=== PATIENT | female | born 1980 | race Caucasian/White ===

== ENCOUNTER → 2021-06-17 09:41 | Outpatient (CLI) | payer OTHER, SELFPAY ==
--- NOTE | 2021-06-17 09:44 | DI.RAD.S_ITS ---
PROCEDURE: XR LUMBAR SPINE 2-3V INDICATIONS: chronic back and bilateral hip pain TECHNIQUE: 2 views of the lumbar spine were acquired. COMPARISON: None. FINDINGS: Bones: 5 [id number] vertebrae are present. There is normal bony alignment. No vertebral body compression fractures. No suspicious bony lesions. Facet arthrosis, most prominent at L5-S1. Soft tissues: Overlying bowel gas pattern is normal. No suspicious soft tissue calcifications. IMPRESSION: Lumbar spine degeneration as detailed above. Dictated by: Trevor Bahena M.D. on 06/17/2021 at 10:45 Approved by: Trevor Bahena M.D. on 06/17/2021 at 10:45
--- NOTE | 2021-06-17 09:44 | DI.RAD.S_ITS ---
PROCEDURE: XR HIP W PEL IF DONE MARCELLA MIN 4V INDICATIONS: chronic back and bilateral hip pain TECHNIQUE: AP pelvis with lateral view(s) of the bilateral hip(s). COMPARISON: None. FINDINGS: Bones: No fractures or dislocations. Pelvic ring appears intact. No suspicious bony lesions. Soft tissues: The visualized bowel gas pattern is normal. No suspicious soft tissue calcifications. IMPRESSION: No acute osseous abnormality. Dictated by: Trevor Bahena M.D. on 06/17/2021 at 10:43 Approved by: Trevor Bahena M.D. on 06/17/2021 at 10:44
[2021-06-17 10:53] LABS: Add Manual Diff / Slide Review NO; Basophils Absolute Auto 0 /uL (0-100); Basophils Percent Auto 0.5 % (0-2); Eosinophils Absolute Auto 200 /uL (0-450); Eosinophils Percent Auto 3.7 % (2-4); Hematocrit 41.4 % (36-46); Hemoglobin 13.8 g/dL (12.0-16.0); Lymphocytes Absolute Auto 1800 /uL (1100-4500); Lymphocytes Percent Auto 29.6 % (25-40); Mean Corpuscular HGB Conc 33.3 % (30-36); Mean Corpuscular Volume 87.1 fL (80-100); Monocytes Absolute Auto 600 /uL (0-900); Monocytes Percent Auto 10.6 % (3-14); Neutrophils Absolute Auto 3300 /uL (1500-7000); Neutrophils Percent Auto 55.6 % (50-75); Platelet Count 245 X10^3/uL (150-400); Red Blood Cell Count 4.75 X10^6/uL (4.0-5.2); Red Cell Distribution Width 13.8 % (11.6-14.8); White Blood Cell Count 5.9 X10^3/uL (4.5-11.0)
[2021-06-17 11:29] LABS: Alanine Aminotransferase 13 IU/L (<35); Albumin 4.4 g/dL (3.5-5.0); Albumin Globulin Ratio 1.4 (1.0-2.8); Alkaline Phosphatase 49 U/L (38-126); Aspartate Aminotransferase 21 IU/L (14-36); BUN Creatinine Ratio 18.4 (6-22); Bilirubin Total 0.5 mg/dL (0.2-1.3); Blood Urea Nitrogen 14 mg/dL (7-17); Calcium 9.4 mg/dL (8.4-10.2); Carbon Dioxide 27 mmol/L (22-32); Chloride 103 mmol/L (98-107); Cholesterol 215 mg/dL (140-199); Estimated Glomerular Filt Rate > 60.0 mL/min (>60); Globulin 3.2 g/dL (1.7-4.1); Glucose 85 mg/dL (70-100); HDL Cholesterol 66 mg/dL (40-60); HEMOLYSIS < 15 (0-50); LDL Cholesterol Calculated 136 mg/dL (<100); Potassium 4.3 mmol/L (3.4-5.1); Sodium 139 mmol/L (137-145); Total Protein 7.6 g/dL (6.3-8.2); Triglycerides 67 mg/dL (35-150)
[2021-06-17 11:37] LABS: Vitamin D 25 Hydroxy (D3) 39.7 ng/mL (30.0-100.0)
[2021-06-17 11:54] LABS: TSH w/ Reflex to FT4 3.39 uIU/mL (0.47-4.68)
[2021-06-17 12:12] LABS: Vitamin B12 Reflex MMA if <400 453 pg/mL (239-931)
== END ==
PROVIDERS: Family Provider Family Medicine; PCP Family Medicine; Referring Provider Family Medicine; Visit Provider Family Medicine
DX: M47.817 Spondylosis without myelopathy or radiculopathy, lumbosacral region (principal); M25.552 Pain in left hip; M25.551 Pain in right hip; M54.50 Low back pain, unspecified; L30.9 Dermatitis, unspecified; L65.9 Nonscarring hair loss, unspecified; R53.83 Other fatigue; G89.29 Other chronic pain
CPT/HCPCS: 36415; 72100; 73522; 80053; 80061; 82306; 82607; 84443; 85025

== ENCOUNTER 2021-08-15 09:00 | Outpatient (RCR) | payer OTHER, SELFPAY ==
--- NOTE | 2021-05-09 12:44 | PT.OIE ---
Current Diagnoses Other chronic pain (05/09/21) Pain in right hip (05/09/21) Pain in left hip (05/09/21) Low back pain, unspecified (05/09/21) Past Medical History (Last Updated 01/03/21 @ 11:20 by Celso Norton MD) Bilateral hip pain Chronic low back pain Dermatitis Fatigue IBS (irritable bowel syndrome) Past Surgical History History of breast augmentation Visit Care Team Role Provider Type Celso Norton MD Attending Provider Physician Family Provider Primary Care Provider Referring Provider Specialty: [facility] Practice Address: [address] [place] [address] Email: [email or web address] Physical Therapy Initial Evaluation PT-OP-A Visit Information Start: 05/01/21 07:52 Freq: Status: Active Protocol: Document 05/09/21 09:45 AMB (Rec: 05/09/21 09:58 AMB [id number]) Out-Patient Physical Therapy Visit Information Visit Information Visit Type Initial Evaluation Visit Start Time 09:45 Visit Stop Time 10:30 Total Visit Minutes 45 Visit Number 1 PT-OP-B Current Condition Start: 05/01/21 07:52 Freq: Status: Active Protocol: Document 05/09/21 09:45 AMB (Rec: 05/09/21 09:58 AMB [id number]) Current Condition History of Current Condition Onset Date 2 years ago Current Complaints L low back pain and bilateral hip pain History of Current Condition Back can get locked up, both hips get sore a lot. Doesn't feel like there's a pattern. Denies stiffness. Cracking her back helps- does that probably every other day. Denies radiation down the leg. Does report diastasis recti and pelvic floor weakness after 3 kids. Youngest kid is 6. Current Functional Impairments (Reported) Functional Limitations- ADL's Getting in and out of the car, rolling over in bed are painful, extended sitting to drive is painful Personal Factors Other Personal Factors That May Effect Reports stress incontinence, Therapy/Recovery PT-OP-C Subjective Start: 05/01/21 07:52 Freq: Status: Active Protocol: Document 05/09/21 09:45 AMB (Rec: 05/09/21 11:04 AMB [id number]) Patient Questionnaires Lower Extremity Functional Scale LEFS Score 65 LEFS Impairment 1 to 19% Impaired (Score 63-79 ) OP-PT Pain Assessment Comments Pain Comments 6/10 low back (L), 4/10 bilateral hips PT-OP-F Manual Assessment Start: 05/01/21 07:52 Freq: Status: Active Protocol: Document 05/09/21 09:45 AMB (Rec: 05/09/21 11:04 AMB [id number]) Manual Assessments Soft Tissue Assessment Soft Tissue Mobility Assessment No pain reproduced with palpation through hip flexor and gluteals, some tightness in gluteals Joint Mobility Assessment Joint Mobility Assessment No pain with unilateral or central PAs throughout lumbar spine, pain with hip IR with OP on the left and with lumbar sidebeninding to the L PT-OP-J Posture/Palpation/Skin Start: 05/01/21 07:52 Freq: Status: Active Protocol: Document 05/09/21 09:45 AMB (Rec: 05/09/21 11:04 AMB [id number]) Posture Evaluation Comments Posture Comments significant increased lumbar lordosis. In supine medial malleolus appeared inferior on the left and ASIS superior on the left Palpation Assessment Location Two Palpation Location SI joint Palpation Details apparent lipoma on L SI joint One Palpation Location abdomen Palpation Details diastasis recti - bulging out with lifting head up PT-OP-K Range of Motion Start: 05/01/21 07:52 Freq: Status: Active Protocol: Document 05/09/21 09:45 AMB (Rec: 05/09/21 11:04 AMB [id number]) Lumbar Spine Range of Motion Lumbar Spine Active Degrees Testing Position Standing Flexion 45 Extension 10 Lateral Flexion Left 10 Lateral Flexion Right 20 Comments Pain with L sidebending Hip Goniometric Range of Motion Hip Left Passive Testing Position Supine Internal Rotation 25 Comments 37 degrees without pain on the right, painful on the left- reproduced back pain PT-OP-L Special Tests Start: 05/01/21 07:52 Freq: Status: Active Protocol: Document 05/09/21 09:45 AMB (Rec: 05/09/21 11:04 AMB [id number]) Special Tests Hip Special Tests HIEU Test Results - PT-OP-M Strength Start: 05/01/21 07:52 Freq: Status: Active Protocol: Document 05/09/21 09:45 AMB (Rec: 05/09/21 11:04 AMB [id number]) Hip Strength Hip Manual Muscle Testing Left Flexion (L2) 5 Normal Extension (S1) 5 Normal Abduction 5 Normal Adduction 5 Normal External Rotation 5 Normal Internal Rotation 5 Normal PT-OP-Q Treatments Start: 05/01/21 07:52 Freq: Status: Active Protocol: Document 05/09/21 09:45 AMB (Rec: 05/09/21 11:16 AMB [id number]) Manual Therapy Treatment Taping 1 Body Location SI joints Type of Tape Kinesio Tape Comments I strip at lumbosacral joint and over lipoma PT-OP-T Assessment and Plan Start: 05/01/21 07:52 Freq: Status: Active Protocol: Document 05/09/21 09:45 AMB (Rec: 05/09/21 11:16 AMB [id number]) Physical Therapy Assessment Rehab Potential Rehabilitation Potential Good Evaluation Complexity Number of Personal Factors/Comorbidities 1-2 Number of Body Systems Impaired 4 or More Clinical Presentation at Evaluation Stable Impairments Impairments Functional Activities, Functional Mobility,ROM,Soft Tissue Mobility Goals Two Impairment HEP Short Term Goal (STG) Suzy will be independent with a HEP for core stability. STG Duration 4 weeks One Impairment Transfers Short Term Goal (STG) Suzy will roll over in bed without back/hip pain. STG Duration 4 weeks Snf Goal (LTG) Suzy will move in and out of her car without hip/back pain. LTG Duration 8 weeks Assessment Summary Assessment Suzy attends PT with worsening L sided low back pain that radiates into her bilateral hips. She notes pain over a lump which appeared to this therapist to be a lipoma over her SI joint. She did notice pain relief with posterior pelvic tilt and TA contraction. Poor TA and PF strength per her report. She did also have back pain with hip internal rotation which could be a further sign of sacrioiliac joint dysfunction. 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 Physical Therapy Plan Frequency and Duration Frequency of Treatment 2x/Week Duration of Treatment 8 weeks Plan of Care Start Date 05/09/21 Plan of Care End Date 07/04/21 Therapeutic Interventions Therapeutic Interventions Home Exercise Program,Manual Therapy,Neuromuscular Re- education,Self-Care/Home Management,Therapeutic Activities,Therapeutic Exercises Modalities Cold Pack/Ice Massage,Electric Stimulation,Hot Packs Next Visit Focus/Plan Next Note Type Treatment Note Next Visit Plan follow up on taping and working on TA engagement, posterior pelvic tilt
--- NOTE | 2021-05-09 12:44 | PT.OPPOC ---
Physical, Occupational & Speech Therapy At [facility] Current Diagnoses Other chronic pain (05/09/21) Pain in right hip (05/09/21) Pain in left hip (05/09/21) Low back pain, unspecified (05/09/21) Visit Care Team Role Provider Type Celso Norton MD Attending Provider Physician Family Provider Primary Care Provider Referring Provider Specialty: Family Practice Address: [address] [place] [address], [facility] Email: [email or web address] Plan Of Care PT-OP-T Assessment and Plan Start: 05/01/21 07:52 Freq: Status: Active Protocol: Document 05/09/21 09:45 AMB (Rec: 05/09/21 11:16 AMB [id number]) Physical Therapy Assessment Rehab Potential Rehabilitation Potential Good Evaluation Complexity Number of Personal Factors/Comorbidities 1-2 Number of Body Systems Impaired 4 or More Clinical Presentation at Evaluation Stable Impairments Impairments Functional Activities, Functional Mobility,ROM,Soft Tissue Mobility Goals Two Impairment HEP Short Term Goal (STG) Suzy will be independent with a HEP for core stability. STG Duration 4 weeks One Impairment Transfers Short Term Goal (STG) Suzy will roll over in bed without back/hip pain. STG Duration 4 weeks Insurance Verification Clerk Goal (LTG) Suzy will move in and out of her car without hip/back pain. LTG Duration 8 weeks Assessment Summary Assessment Suzy attends PT with worsening L sided low back pain that radiates into her bilateral hips. She notes pain over a lump which appeared to this therapist to be a lipoma over her SI joint. She did notice pain relief with posterior pelvic tilt and TA contraction. Poor TA and PF strength per her report. She did also have back pain with hip internal rotation which could be a further sign of sacrioiliac joint dysfunction. 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 Physical Therapy Plan Frequency and Duration Frequency of Treatment 2x/Week Duration of Treatment 8 weeks Plan of Care Start Date 05/09/21 Plan of Care End Date 07/04/21 Therapeutic Interventions Therapeutic Interventions Home Exercise Program,Manual Therapy,Neuromuscular Re- education,Self-Care/Home Management,Therapeutic Activities,Therapeutic Exercises Modalities Cold Pack/Ice Massage,Electric Stimulation,Hot Packs Next Visit Focus/Plan Next Note Type Treatment Note Next Visit Plan follow up on taping and working on TA engagement, posterior pelvic tilt Plan of Care Dates Plan of Care Start Date 05/09/21 Plan of Care End Date 07/04/21 Electronically Signed by: Ketty Ospina, PT 05/09/21 [id number] Please Sign and Return: I have reviewed this Plan of Care and certify that the skilled therapy services above are required to meet the patient?s needs. Physician Signature Date Printed Name and Credentials Clinical Instructor Signature Printed Name and Credentials
--- NOTE | 2021-05-14 16:00 | PT.OTN ---
Current Diagnoses Other chronic pain (05/14/21) Pain in right hip (05/14/21) Pain in left hip (05/14/21) Low back pain, unspecified (05/14/21) Physical Therapy Treatment Note PT-OP-A Visit Information Start: 05/01/21 07:52 Freq: Status: Active Protocol: Document 05/14/21 09:30 AMB (Rec: 05/14/21 16:00 AMB [id number]) Out-Patient Physical Therapy Visit Information Visit Information Visit Type Treatment Note Visit Start Time 09:30 Visit Stop Time 10:15 Total Visit Minutes 45 Visit Number 2 PT-OP-B Current Condition Start: 05/01/21 07:52 Freq: Status: Active Protocol: Document 05/09/21 09:45 AMB (Rec: 05/09/21 09:58 AMB [id number]) Current Condition History of Current Condition Onset Date 2 years ago Current Complaints L low back pain and bilateral hip pain History of Current Condition Back can get locked up, both hips get sore a lot. Doesn't feel like there's a pattern. Denies stiffness. Cracking her back helps- does that probably every other day. Denies radiation down the leg. Does report diastasis recti and pelvic floor weakness after 3 kids. Youngest kid is 6. Current Functional Impairments (Reported) Functional Limitations- ADL's Getting in and out of the car, rolling over in bed are painful, extended sitting to drive is painful Personal Factors Other Personal Factors That May Effect Reports stress incontinence, Therapy/Recovery PT-OP-C Subjective Start: 05/01/21 07:52 Freq: Status: Active Protocol: Document 05/14/21 09:30 AMB (Rec: 05/14/21 16:00 AMB [id number]) OP-PT Subjective Patient Comments Patient Comments Suzy has returned to her workouts, generally feels better with movement, when driving or getting up in the morning feels really stiff. PT-OP-F Manual Assessment Start: 05/01/21 07:52 Freq: Status: Active Protocol: Document 05/09/21 09:45 AMB (Rec: 05/09/21 11:04 AMB [id number]) Manual Assessments Soft Tissue Assessment Soft Tissue Mobility Assessment No pain reproduced with palpation through hip flexor and gluteals, some tightness in gluteals Joint Mobility Assessment Joint Mobility Assessment No pain with unilateral or central PAs throughout lumbar spine, pain with hip IR with OP on the left and with lumbar sidebeninding to the L PT-OP-J Posture/Palpation/Skin Start: 05/01/21 07:52 Freq: Status: Active Protocol: Document 05/09/21 09:45 AMB (Rec: 05/09/21 11:04 AMB [id number]) Posture Evaluation Comments Posture Comments significant increased lumbar lordosis. In supine medial malleolus appeared inferior on the left and ASIS superior on the left Palpation Assessment Location Two Palpation Location SI joint Palpation Details apparent lipoma on L SI joint One Palpation Location abdomen Palpation Details diastasis recti - bulging out with lifting head up PT-OP-K Range of Motion Start: 05/01/21 07:52 Freq: Status: Active Protocol: Document 05/09/21 09:45 AMB (Rec: 05/09/21 11:04 AMB [id number]) Lumbar Spine Range of Motion Lumbar Spine Active Degrees Testing Position Standing Flexion 45 Extension 10 Lateral Flexion Left 10 Lateral Flexion Right 20 Comments Pain with L sidebending Hip Goniometric Range of Motion Hip Left Passive Testing Position Supine Internal Rotation 25 Comments 37 degrees without pain on the right, painful on the left- reproduced back pain PT-OP-L Special Tests Start: 05/01/21 07:52 Freq: Status: Active Protocol: Document 05/09/21 09:45 AMB (Rec: 05/09/21 11:04 AMB [id number]) Special Tests Hip Special Tests HIEU Test Results - PT-OP-M Strength Start: 05/01/21 07:52 Freq: Status: Active Protocol: Document 05/09/21 09:45 AMB (Rec: 05/09/21 11:04 AMB [id number]) Hip Strength Hip Manual Muscle Testing Left Flexion (L2) 5 Normal Extension (S1) 5 Normal Abduction 5 Normal Adduction 5 Normal External Rotation 5 Normal Internal Rotation 5 Normal PT-OP-Q Treatments Start: 05/01/21 07:52 Freq: Status: Active Protocol: Document 05/14/21 09:30 AMB (Rec: 05/14/21 16:00 AMB [id number]) Therapeutic Exercises Supine Exercises DKTC Reps/Minutes 30x2 LTR Reps/Minutes 10 table top Reps/Minutes 10 Comments cues for TA PPT Reps/Minutes 10 Sitting Exercises therapy ball Sitting Exercise Name pelvic tilt- difficult in seated Other Exercises cameron pose Reps/Minutes 10 cat cow Reps/Minutes 10 PT-OP-T Assessment and Plan Start: 05/01/21 07:52 Freq: Status: Active Protocol: Document 05/14/21 09:30 AMB (Rec: 05/14/21 16:00 AMB [id number]) Physical Therapy Assessment Goals Two Impairment HEP Short Term Goal (STG) Suzy will be independent with a HEP for core stability. STG Duration 4 weeks One Impairment Transfers Short Term Goal (STG) Suzy will roll over in bed without back/hip pain. STG Duration 4 weeks Halfway Goal (LTG) Suzy will move in and out of her car without hip/back pain. LTG Duration 8 weeks Assessment Summary Assessment Suzy has a hard time engaging core around belly button. Gave options today for core stability including table top tap down in PPT instead of crunches. Pt also had difficulty engaging core in plank position. Physical Therapy Plan Next Visit Focus/Plan Next Visit Plan HEP: LTR, DKTC, cameron pose to encourage PPT, catcow, table top and PPT for core stability , follow up on ergonomics of car. Try K tape for diastasis .
--- NOTE | 2021-05-23 10:26 | PT.OTN ---
Current Diagnoses Other chronic pain (05/21/21) Pain in right hip (05/21/21) Pain in left hip (05/21/21) Low back pain, unspecified (05/21/21) Physical Therapy Treatment Note PT-OP-A Visit Information Start: 05/01/21 07:52 Freq: Status: Active Protocol: Document 05/21/21 13:02 AMB (Rec: 05/23/21 10:26 AMB [id number]) Out-Patient Physical Therapy Visit Information Visit Information Visit Type Treatment Note Visit Start Time 13:00 Visit Stop Time 13:45 Total Visit Minutes 45 Visit Number 3 PT-OP-B Current Condition Start: 05/01/21 07:52 Freq: Status: Active Protocol: Document 05/09/21 09:45 AMB (Rec: 05/09/21 09:58 AMB [id number]) Current Condition History of Current Condition Onset Date 2 years ago Current Complaints L low back pain and bilateral hip pain History of Current Condition Back can get locked up, both hips get sore a lot. Doesn't feel like there's a pattern. Denies stiffness. Cracking her back helps- does that probably every other day. Denies radiation down the leg. Does report diastasis recti and pelvic floor weakness after 3 kids. Youngest kid is 6. Current Functional Impairments (Reported) Functional Limitations- ADL's Getting in and out of the car, rolling over in bed are painful, extended sitting to drive is painful Personal Factors Other Personal Factors That May Effect Reports stress incontinence, Therapy/Recovery PT-OP-C Subjective Start: 05/01/21 07:52 Freq: Status: Active Protocol: Document 05/21/21 13:02 AMB (Rec: 05/23/21 10:26 AMB [id number]) OP-PT Subjective Patient Comments Patient Comments Suzy is feeling less pain in her low back. Still feeling pain in her hips. Feels like having to sit still in the car is a big problem, has been trying to sit with more neutral spine, but then feels like she's slouching janessa in the car. PT-OP-F Manual Assessment Start: 05/01/21 07:52 Freq: Status: Active Protocol: Document 05/09/21 09:45 AMB (Rec: 05/09/21 11:04 AMB [id number]) Manual Assessments Soft Tissue Assessment Soft Tissue Mobility Assessment No pain reproduced with palpation through hip flexor and gluteals, some tightness in gluteals Joint Mobility Assessment Joint Mobility Assessment No pain with unilateral or central PAs throughout lumbar spine, pain with hip IR with OP on the left and with lumbar sidebeninding to the L PT-OP-J Posture/Palpation/Skin Start: 05/01/21 07:52 Freq: Status: Active Protocol: Document 05/09/21 09:45 AMB (Rec: 05/09/21 11:04 AMB [id number]) Posture Evaluation Comments Posture Comments significant increased lumbar lordosis. In supine medial malleolus appeared inferior on the left and ASIS superior on the left Palpation Assessment Location Two Palpation Location SI joint Palpation Details apparent lipoma on L SI joint One Palpation Location abdomen Palpation Details diastasis recti - bulging out with lifting head up PT-OP-K Range of Motion Start: 05/01/21 07:52 Freq: Status: Active Protocol: Document 05/09/21 09:45 AMB (Rec: 05/09/21 11:04 AMB [id number]) Lumbar Spine Range of Motion Lumbar Spine Active Degrees Testing Position Standing Flexion 45 Extension 10 Lateral Flexion Left 10 Lateral Flexion Right 20 Comments Pain with L sidebending Hip Goniometric Range of Motion Hip Left Passive Testing Position Supine Internal Rotation 25 Comments 37 degrees without pain on the right, painful on the left- reproduced back pain PT-OP-L Special Tests Start: 05/01/21 07:52 Freq: Status: Active Protocol: Document 05/09/21 09:45 AMB (Rec: 05/09/21 11:04 AMB [id number]) Special Tests Hip Special Tests HIEU Test Results - PT-OP-M Strength Start: 05/01/21 07:52 Freq: Status: Active Protocol: Document 05/09/21 09:45 AMB (Rec: 05/09/21 11:04 AMB [id number]) Hip Strength Hip Manual Muscle Testing Left Flexion (L2) 5 Normal Extension (S1) 5 Normal Abduction 5 Normal Adduction 5 Normal External Rotation 5 Normal Internal Rotation 5 Normal PT-OP-Q Treatments Start: 05/01/21 07:52 Freq: Status: Active Protocol: Document 05/21/21 13:02 AMB (Rec: 05/23/21 10:26 AMB [id number]) Therapeutic Exercises Sitting Exercises therapy ball Sitting Exercise Name pelvic tilt- difficult in seated Standing Exercises pelvic neutral Standing Exercise Name with mirror feedback Other Exercises cameron pose Reps/Minutes 10 cat cow Reps/Minutes 10 Manual Therapy Treatment Taping 1 Body Location diastasis Type of Tape Kinesio Tape Comments 4 I strips in herringbone pattern PT-OP-T Assessment and Plan Start: 05/01/21 07:52 Freq: Status: Active Protocol: Document 05/21/21 13:02 AMB (Rec: 05/21/21 13:53 AMB [id number]) Physical Therapy Assessment Goals Two Impairment HEP Short Term Goal (STG) Suzy will be independent with a HEP for core stability. STG Duration 4 weeks One Impairment Transfers Short Term Goal (STG) Suzy will roll over in bed without back/hip pain. STG Duration 4 weeks Machine I Coremaker Goal (LTG) Suzy will move in and out of her car without hip/back pain. LTG Duration 8 weeks Assessment Summary Assessment Suzy continues to have difficulty finding neutral pelvic tilt. Provided mirror feedback and that was helpful. K tape for diastasis seemed the most helpful, so she could feel her TA more. Physical Therapy Plan Frequency and Duration Frequency of Treatment 2x/Week Duration of Treatment 8 weeks Plan of Care Start Date 05/09/21 Plan of Care End Date 07/04/21 Therapeutic Interventions Therapeutic Interventions Home Exercise Program,Manual Therapy,Neuromuscular Re- education,Self-Care/Home Management,Therapeutic Activities,Therapeutic Exercises Modalities Cold Pack/Ice Massage,Electric Stimulation,Hot Packs Next Visit Focus/Plan Next Visit Plan HEP: LTR, DKTC, cameron pose to encourage PPT, catcow, table top and PPT for core stability , follow up on ergonomics of car- did she try lumbar support. How did k tape feel?
--- NOTE | 2021-05-28 16:19 | PT.OTN ---
Current Diagnoses Other chronic pain (05/28/21) Pain in right hip (05/28/21) Pain in left hip (05/28/21) Low back pain, unspecified (05/28/21) Physical Therapy Treatment Note PT-OP-A Visit Information Start: 05/01/21 07:52 Freq: Status: Active Protocol: Document 05/28/21 13:45 AMB (Rec: 05/28/21 16:19 AMB [id number]) Out-Patient Physical Therapy Visit Information Visit Information Visit Type Treatment Note Visit Start Time 13:45 Visit Stop Time 14:30 Total Visit Minutes 45 Visit Number 4 PT-OP-B Current Condition Start: 05/01/21 07:52 Freq: Status: Active Protocol: Document 05/09/21 09:45 AMB (Rec: 05/09/21 09:58 AMB [id number]) Current Condition History of Current Condition Onset Date 2 years ago Current Complaints L low back pain and bilateral hip pain History of Current Condition Back can get locked up, both hips get sore a lot. Doesn't feel like there's a pattern. Denies stiffness. Cracking her back helps- does that probably every other day. Denies radiation down the leg. Does report diastasis recti and pelvic floor weakness after 3 kids. Youngest kid is 6. Current Functional Impairments (Reported) Functional Limitations- ADL's Getting in and out of the car, rolling over in bed are painful, extended sitting to drive is painful Personal Factors Other Personal Factors That May Effect Reports stress incontinence, Therapy/Recovery PT-OP-C Subjective Start: 05/01/21 07:52 Freq: Status: Active Protocol: Document 05/28/21 13:45 AMB (Rec: 05/28/21 16:19 AMB [id number]) OP-PT Subjective Patient Comments Patient Comments R hip pain, especially when getting up from bed. Liked k tape, but is feeling heaviness in pelvic more today than normal. Lumbar support helped with driving. PT-OP-F Manual Assessment Start: 05/01/21 07:52 Freq: Status: Active Protocol: Document 05/09/21 09:45 AMB (Rec: 05/09/21 11:04 AMB [id number]) Manual Assessments Soft Tissue Assessment Soft Tissue Mobility Assessment No pain reproduced with palpation through hip flexor and gluteals, some tightness in gluteals Joint Mobility Assessment Joint Mobility Assessment No pain with unilateral or central PAs throughout lumbar spine, pain with hip IR with OP on the left and with lumbar sidebeninding to the L PT-OP-J Posture/Palpation/Skin Start: 05/01/21 07:52 Freq: Status: Active Protocol: Document 05/09/21 09:45 AMB (Rec: 05/09/21 11:04 AMB [id number]) Posture Evaluation Comments Posture Comments significant increased lumbar lordosis. In supine medial malleolus appeared inferior on the left and ASIS superior on the left Palpation Assessment Location Two Palpation Location SI joint Palpation Details apparent lipoma on L SI joint One Palpation Location abdomen Palpation Details diastasis recti - bulging out with lifting head up PT-OP-K Range of Motion Start: 05/01/21 07:52 Freq: Status: Active Protocol: Document 05/09/21 09:45 AMB (Rec: 05/09/21 11:04 AMB [id number]) Lumbar Spine Range of Motion Lumbar Spine Active Degrees Testing Position Standing Flexion 45 Extension 10 Lateral Flexion Left 10 Lateral Flexion Right 20 Comments Pain with L sidebending Hip Goniometric Range of Motion Hip Left Passive Testing Position Supine Internal Rotation 25 Comments 37 degrees without pain on the right, painful on the left- reproduced back pain PT-OP-L Special Tests Start: 05/01/21 07:52 Freq: Status: Active Protocol: Document 05/09/21 09:45 AMB (Rec: 05/09/21 11:04 AMB [id number]) Special Tests Hip Special Tests HIEU Test Results - PT-OP-M Strength Start: 05/01/21 07:52 Freq: Status: Active Protocol: Document 05/09/21 09:45 AMB (Rec: 05/09/21 11:04 AMB [id number]) Hip Strength Hip Manual Muscle Testing Left Flexion (L2) 5 Normal Extension (S1) 5 Normal Abduction 5 Normal Adduction 5 Normal External Rotation 5 Normal Internal Rotation 5 Normal PT-OP-Q Treatments Start: 05/01/21 07:52 Freq: Status: Active Protocol: Document 05/28/21 13:45 AMB (Rec: 05/28/21 16:19 AMB [id number]) Therapeutic Exercises Supine Exercises IT band stretch Side right Reps/Minutes 30x3 hip flexor stretch Side right Reps/Minutes 30x3 pelvic floor Supine Exercise Name contract pelvic floor with legs elevated Reps/Minutes 10 min Comments discuss breath LTR Reps/Minutes 10 Standing Exercises pelvic neutral Standing Exercise Name with mirror feedback Manual Therapy Treatment Taping 1 Body Location diastasis Type of Tape Kinesio Tape Comments 4 I strips in herringbone pattern PT-OP-T Assessment and Plan Start: 05/01/21 07:52 Freq: Status: Active Protocol: Document 05/28/21 13:45 AMB (Rec: 05/28/21 16:19 AMB [id number]) Physical Therapy Assessment Assessment Summary Assessment Suzy is continuing to have right hip pain while left back has improved, she always thought they were related but now thinking maybe not since back has improved and hip has not. Wasn't tight in hip flexor or IT band, feels it when sedentary more. Physical Therapy Plan Next Visit Focus/Plan Next Visit Plan HEP: LTR, DKTC, cameron pose to encourage PPT, catcow, table top and PPT for core stability , follow up on ergonomics of car- did she try lumbar support. How did k tape feel?
--- NOTE | 2021-05-30 15:36 | PT.OTN ---
Current Diagnoses Other chronic pain (05/30/21) Pain in right hip (05/30/21) Pain in left hip (05/30/21) Low back pain, unspecified (05/30/21) Physical Therapy Treatment Note PT-OP-A Visit Information Start: 05/01/21 07:52 Freq: Status: Active Protocol: Document 05/30/21 13:45 AMB (Rec: 05/31/21 15:35 AMB [id number]) Out-Patient Physical Therapy Visit Information Visit Information Visit Type Treatment Note Visit Start Time 13:45 Visit Stop Time 14:30 Total Visit Minutes 45 Visit Number 5 PT-OP-B Current Condition Start: 05/01/21 07:52 Freq: Status: Active Protocol: Document 05/09/21 09:45 AMB (Rec: 05/09/21 09:58 AMB [id number]) Current Condition History of Current Condition Onset Date 2 years ago Current Complaints L low back pain and bilateral hip pain History of Current Condition Back can get locked up, both hips get sore a lot. Doesn't feel like there's a pattern. Denies stiffness. Cracking her back helps- does that probably every other day. Denies radiation down the leg. Does report diastasis recti and pelvic floor weakness after 3 kids. Youngest kid is 6. Current Functional Impairments (Reported) Functional Limitations- ADL's Getting in and out of the car, rolling over in bed are painful, extended sitting to drive is painful Personal Factors Other Personal Factors That May Effect Reports stress incontinence, Therapy/Recovery PT-OP-C Subjective Start: 05/01/21 07:52 Freq: Status: Active Protocol: Document 05/30/21 13:45 AMB (Rec: 05/31/21 15:35 AMB [id number]) OP-PT Subjective Patient Comments Patient Comments Suzy is feeling like her back pain is a lot better but her right hip continues to bother her especially when standing up from sitting/lying . PT-OP-F Manual Assessment Start: 05/01/21 07:52 Freq: Status: Active Protocol: Document 05/09/21 09:45 AMB (Rec: 05/09/21 11:04 AMB [id number]) Manual Assessments Soft Tissue Assessment Soft Tissue Mobility Assessment No pain reproduced with palpation through hip flexor and gluteals, some tightness in gluteals Joint Mobility Assessment Joint Mobility Assessment No pain with unilateral or central PAs throughout lumbar spine, pain with hip IR with OP on the left and with lumbar sidebeninding to the L PT-OP-J Posture/Palpation/Skin Start: 05/01/21 07:52 Freq: Status: Active Protocol: Document 05/09/21 09:45 AMB (Rec: 05/09/21 11:04 AMB [id number]) Posture Evaluation Comments Posture Comments significant increased lumbar lordosis. In supine medial malleolus appeared inferior on the left and ASIS superior on the left Palpation Assessment Location Two Palpation Location SI joint Palpation Details apparent lipoma on L SI joint One Palpation Location abdomen Palpation Details diastasis recti - bulging out with lifting head up PT-OP-K Range of Motion Start: 05/01/21 07:52 Freq: Status: Active Protocol: Document 05/09/21 09:45 AMB (Rec: 05/09/21 11:04 AMB [id number]) Lumbar Spine Range of Motion Lumbar Spine Active Degrees Testing Position Standing Flexion 45 Extension 10 Lateral Flexion Left 10 Lateral Flexion Right 20 Comments Pain with L sidebending Hip Goniometric Range of Motion Hip Left Passive Testing Position Supine Internal Rotation 25 Comments 37 degrees without pain on the right, painful on the left- reproduced back pain PT-OP-L Special Tests Start: 05/01/21 07:52 Freq: Status: Active Protocol: Document 05/09/21 09:45 AMB (Rec: 05/09/21 11:04 AMB [id number]) Special Tests Hip Special Tests HIEU Test Results - PT-OP-M Strength Start: 05/01/21 07:52 Freq: Status: Active Protocol: Document 05/09/21 09:45 AMB (Rec: 05/09/21 11:04 AMB [id number]) Hip Strength Hip Manual Muscle Testing Left Flexion (L2) 5 Normal Extension (S1) 5 Normal Abduction 5 Normal Adduction 5 Normal External Rotation 5 Normal Internal Rotation 5 Normal PT-OP-Q Treatments Start: 05/01/21 07:52 Freq: Status: Active Protocol: Document 05/30/21 13:45 AMB (Rec: 05/31/21 15:35 AMB [id number]) Therapeutic Exercises Supine Exercises IT band stretch Side right Reps/Minutes 30x3 hip flexor stretch Side right Reps/Minutes 30x3 LTR Reps/Minutes 10 table top Reps/Minutes 10 Comments cues for TA Sidelying Exercises hip abduction Reps/Minutes 2x10 Sitting Exercises toe curls Sitting Exercise Name with high arch- towel resistance Reps/Minutes 10 Manual Therapy Treatment Taping 1 Body Location diastasis Type of Tape Kinesio Tape Comments 4 I strips in herringbone pattern PT-OP-T Assessment and Plan Start: 05/01/21 07:52 Freq: Status: Active Protocol: Document 05/30/21 13:45 AMB (Rec: 05/31/21 15:35 AMB [id number]) Physical Therapy Assessment Assessment Summary Assessment Suzy concerned about arches, and does have lower arch on the right than the left. Could consider superfeet- felt better with green. Has been noticing R sided knee pain lately and wondering if that's related to R hip pain. Going to continue working on R hip/core stability. Physical Therapy Plan Next Visit Focus/Plan Next Note Type Treatment Note Next Visit Plan HEP: LTR, DKTC, cameron pose to encourage PPT, catcow, table top and PPT for core stability , toe curls for R arch, hip abd
--- NOTE | 2021-05-31 15:36 | PT.OTN ---
Current Diagnoses Other chronic pain (05/30/21) Pain in right hip (05/30/21) Pain in left hip (05/30/21) Low back pain, unspecified (05/30/21) Physical Therapy Treatment Note PT-OP-A Visit Information Start: 05/01/21 07:52 Freq: Status: Active Protocol: Document 05/30/21 13:45 AMB (Rec: 05/31/21 15:35 AMB [id number]) Out-Patient Physical Therapy Visit Information Visit Information Visit Type Treatment Note Visit Start Time 13:45 Visit Stop Time 14:30 Total Visit Minutes 45 Visit Number 5 PT-OP-B Current Condition Start: 05/01/21 07:52 Freq: Status: Active Protocol: Document 05/09/21 09:45 AMB (Rec: 05/09/21 09:58 AMB [id number]) Current Condition History of Current Condition Onset Date 2 years ago Current Complaints L low back pain and bilateral hip pain History of Current Condition Back can get locked up, both hips get sore a lot. Doesn't feel like there's a pattern. Denies stiffness. Cracking her back helps- does that probably every other day. Denies radiation down the leg. Does report diastasis recti and pelvic floor weakness after 3 kids. Youngest kid is 6. Current Functional Impairments (Reported) Functional Limitations- ADL's Getting in and out of the car, rolling over in bed are painful, extended sitting to drive is painful Personal Factors Other Personal Factors That May Effect Reports stress incontinence, Therapy/Recovery PT-OP-C Subjective Start: 05/01/21 07:52 Freq: Status: Active Protocol: Document 05/30/21 13:45 AMB (Rec: 05/31/21 15:35 AMB [id number]) OP-PT Subjective Patient Comments Patient Comments Suzy is feeling like her back pain is a lot better but her right hip continues to bother her especially when standing up from sitting/lying . PT-OP-F Manual Assessment Start: 05/01/21 07:52 Freq: Status: Active Protocol: Document 05/09/21 09:45 AMB (Rec: 05/09/21 11:04 AMB [id number]) Manual Assessments Soft Tissue Assessment Soft Tissue Mobility Assessment No pain reproduced with palpation through hip flexor and gluteals, some tightness in gluteals Joint Mobility Assessment Joint Mobility Assessment No pain with unilateral or central PAs throughout lumbar spine, pain with hip IR with OP on the left and with lumbar sidebeninding to the L PT-OP-J Posture/Palpation/Skin Start: 05/01/21 07:52 Freq: Status: Active Protocol: Document 05/09/21 09:45 AMB (Rec: 05/09/21 11:04 AMB [id number]) Posture Evaluation Comments Posture Comments significant increased lumbar lordosis. In supine medial malleolus appeared inferior on the left and ASIS superior on the left Palpation Assessment Location Two Palpation Location SI joint Palpation Details apparent lipoma on L SI joint One Palpation Location abdomen Palpation Details diastasis recti - bulging out with lifting head up PT-OP-K Range of Motion Start: 05/01/21 07:52 Freq: Status: Active Protocol: Document 05/09/21 09:45 AMB (Rec: 05/09/21 11:04 AMB [id number]) Lumbar Spine Range of Motion Lumbar Spine Active Degrees Testing Position Standing Flexion 45 Extension 10 Lateral Flexion Left 10 Lateral Flexion Right 20 Comments Pain with L sidebending Hip Goniometric Range of Motion Hip Left Passive Testing Position Supine Internal Rotation 25 Comments 37 degrees without pain on the right, painful on the left- reproduced back pain PT-OP-L Special Tests Start: 05/01/21 07:52 Freq: Status: Active Protocol: Document 05/09/21 09:45 AMB (Rec: 05/09/21 11:04 AMB [id number]) Special Tests Hip Special Tests HIEU Test Results - PT-OP-M Strength Start: 05/01/21 07:52 Freq: Status: Active Protocol: Document 05/09/21 09:45 AMB (Rec: 05/09/21 11:04 AMB [id number]) Hip Strength Hip Manual Muscle Testing Left Flexion (L2) 5 Normal Extension (S1) 5 Normal Abduction 5 Normal Adduction 5 Normal External Rotation 5 Normal Internal Rotation 5 Normal PT-OP-Q Treatments Start: 05/01/21 07:52 Freq: Status: Active Protocol: Document 05/30/21 13:45 AMB (Rec: 05/31/21 15:35 AMB [id number]) Therapeutic Exercises Supine Exercises IT band stretch Side right Reps/Minutes 30x3 hip flexor stretch Side right Reps/Minutes 30x3 LTR Reps/Minutes 10 table top Reps/Minutes 10 Comments cues for TA Sidelying Exercises hip abduction Reps/Minutes 2x10 Sitting Exercises toe curls Sitting Exercise Name with high arch- towel resistance Reps/Minutes 10 Manual Therapy Treatment Taping 1 Body Location diastasis Type of Tape Kinesio Tape Comments 4 I strips in herringbone pattern PT-OP-T Assessment and Plan Start: 05/01/21 07:52 Freq: Status: Active Protocol: Document 05/30/21 13:45 AMB (Rec: 05/31/21 15:35 AMB [id number]) Physical Therapy Assessment Assessment Summary Assessment Suzy concerned about arches, and does have lower arch on the right than the left. Could consider superfeet- felt better with green. Has been noticing R sided knee pain lately and wondering if that's related to R hip pain. Going to continue working on R hip/core stability. Physical Therapy Plan Next Visit Focus/Plan Next Note Type Treatment Note Next Visit Plan HEP: LTR, DKTC, cameron pose to encourage PPT, catcow, table top and PPT for core stability , toe curls for R arch, hip abd
--- NOTE | 2021-06-03 16:03 | PT.OTN ---
Current Diagnoses Other chronic pain (06/03/21) Pain in right hip (06/03/21) Pain in left hip (06/03/21) Low back pain, unspecified (06/03/21) Physical Therapy Treatment Note PT-OP-A Visit Information Start: 05/01/21 07:52 Freq: Status: Active Protocol: Document 06/03/21 11:15 AMB (Rec: 06/03/21 12:51 AMB [id number]) Out-Patient Physical Therapy Visit Information Visit Information Visit Type Treatment Note Visit Start Time 11:15 Visit Stop Time 12:00 Total Visit Minutes 45 Visit Number 6 PT-OP-B Current Condition Start: 05/01/21 07:52 Freq: Status: Active Protocol: Document 05/09/21 09:45 AMB (Rec: 05/09/21 09:58 AMB [id number]) Current Condition History of Current Condition Onset Date 2 years ago Current Complaints L low back pain and bilateral hip pain History of Current Condition Back can get locked up, both hips get sore a lot. Doesn't feel like there's a pattern. Denies stiffness. Cracking her back helps- does that probably every other day. Denies radiation down the leg. Does report diastasis recti and pelvic floor weakness after 3 kids. Youngest kid is 6. Current Functional Impairments (Reported) Functional Limitations- ADL's Getting in and out of the car, rolling over in bed are painful, extended sitting to drive is painful Personal Factors Other Personal Factors That May Effect Reports stress incontinence, Therapy/Recovery PT-OP-C Subjective Start: 05/01/21 07:52 Freq: Status: Active Protocol: Document 06/03/21 11:15 AMB (Rec: 06/03/21 12:51 AMB [id number]) OP-PT Subjective Patient Comments Patient Comments [place] like hip was better over the weekend but then it is more PT-OP-F Manual Assessment Start: 05/01/21 07:52 Freq: Status: Active Protocol: Document 05/09/21 09:45 AMB (Rec: 05/09/21 11:04 AMB [id number]) Manual Assessments Soft Tissue Assessment Soft Tissue Mobility Assessment No pain reproduced with palpation through hip flexor and gluteals, some tightness in gluteals Joint Mobility Assessment Joint Mobility Assessment No pain with unilateral or central PAs throughout lumbar spine, pain with hip IR with OP on the left and with lumbar sidebeninding to the L PT-OP-J Posture/Palpation/Skin Start: 05/01/21 07:52 Freq: Status: Active Protocol: Document 05/09/21 09:45 AMB (Rec: 05/09/21 11:04 AMB [id number]) Posture Evaluation Comments Posture Comments significant increased lumbar lordosis. In supine medial malleolus appeared inferior on the left and ASIS superior on the left Palpation Assessment Location Two Palpation Location SI joint Palpation Details apparent lipoma on L SI joint One Palpation Location abdomen Palpation Details diastasis recti - bulging out with lifting head up PT-OP-K Range of Motion Start: 05/01/21 07:52 Freq: Status: Active Protocol: Document 05/09/21 09:45 AMB (Rec: 05/09/21 11:04 AMB [id number]) Lumbar Spine Range of Motion Lumbar Spine Active Degrees Testing Position Standing Flexion 45 Extension 10 Lateral Flexion Left 10 Lateral Flexion Right 20 Comments Pain with L sidebending Hip Goniometric Range of Motion Hip Left Passive Testing Position Supine Internal Rotation 25 Comments 37 degrees without pain on the right, painful on the left- reproduced back pain PT-OP-L Special Tests Start: 05/01/21 07:52 Freq: Status: Active Protocol: Document 05/09/21 09:45 AMB (Rec: 05/09/21 11:04 AMB [id number]) Special Tests Hip Special Tests HIEU Test Results - PT-OP-M Strength Start: 05/01/21 07:52 Freq: Status: Active Protocol: Document 05/09/21 09:45 AMB (Rec: 05/09/21 11:04 AMB [id number]) Hip Strength Hip Manual Muscle Testing Left Flexion (L2) 5 Normal Extension (S1) 5 Normal Abduction 5 Normal Adduction 5 Normal External Rotation 5 Normal Internal Rotation 5 Normal PT-OP-Q Treatments Start: 05/01/21 07:52 Freq: Status: Active Protocol: Document 06/03/21 11:15 AMB (Rec: 06/03/21 13:03 AMB [id number]) Therapeutic Exercises Supine Exercises segmental bridge Reps/Minutes 10 Comments TA, PF hip flexor stretch Side right Reps/Minutes 30x3 Comments the tried in half kneeling PPT Reps/Minutes 10 Sitting Exercises therapy ball Sitting Exercise Name seated with pelvic floor and TA Comments march, LAQ, pelvic circles Manual Therapy Treatment Manual Techniques 1 Comments MET for SI rotation, L LE appears long, R long axis traction PT-OP-T Assessment and Plan Start: 05/01/21 07:52 Freq: Status: Active Protocol: Document 06/03/21 11:15 AMB (Rec: 06/03/21 13:03 AMB [id number]) Physical Therapy Assessment Goals Two Impairment HEP Short Term Goal (STG) Suzy will be independent with a HEP for core stability. STG Duration 4 weeks One Impairment Transfers Short Term Goal (STG) Suzy will roll over in bed without back/hip pain. STG Duration 4 weeks Patternmaker All Around Goal (LTG) Suzy will move in and out of her car without hip/back pain. LTG Duration 8 weeks Assessment Summary Assessment Suzy has a difficult time relaxing pelvic floor on command. Would benefit from internal assessment to make sure she is not hypertonic as the pelvic floor is definitely affecting her back/ ability to contract with hip stabilization. She felt the need to urinate with TA minh alone. but has a difficult time with relaxation of PF. Physical Therapy Plan Next Visit Focus/Plan Next Visit Plan consider internal pelvic floor assessment to test strength and tension
--- NOTE | 2021-06-17 16:36 | PT.OTN ---
Current Diagnoses Other chronic pain (06/17/21) Pain in right hip (06/17/21) Pain in left hip (06/17/21) Low back pain, unspecified (06/17/21) Physical Therapy Treatment Note PT-OP-A Visit Information Start: 05/01/21 07:52 Freq: Status: Active Protocol: Document 06/17/21 11:15 AMB (Rec: 06/17/21 16:36 AMB [id number]) Out-Patient Physical Therapy Visit Information Visit Information Visit Type Treatment Note Visit Start Time 11:15 Visit Stop Time 12:00 Total Visit Minutes 45 Visit Number 7 PT-OP-B Current Condition Start: 05/01/21 07:52 Freq: Status: Active Protocol: Document 05/09/21 09:45 AMB (Rec: 05/09/21 09:58 AMB [id number]) Current Condition History of Current Condition Onset Date 2 years ago Current Complaints L low back pain and bilateral hip pain History of Current Condition Back can get locked up, both hips get sore a lot. Doesn't feel like there's a pattern. Denies stiffness. Cracking her back helps- does that probably every other day. Denies radiation down the leg. Does report diastasis recti and pelvic floor weakness after 3 kids. Youngest kid is 6. Current Functional Impairments (Reported) Functional Limitations- ADL's Getting in and out of the car, rolling over in bed are painful, extended sitting to drive is painful Personal Factors Other Personal Factors That May Effect Reports stress incontinence, Therapy/Recovery PT-OP-C Subjective Start: 05/01/21 07:52 Freq: Status: Active Protocol: Document 06/17/21 11:15 AMB (Rec: 06/17/21 16:36 AMB [id number]) OP-PT Subjective Patient Comments Patient Comments Hip is better, but back is flared up after being on feet all day on Thursday. PT-OP-F Manual Assessment Start: 05/01/21 07:52 Freq: Status: Active Protocol: Document 05/09/21 09:45 AMB (Rec: 05/09/21 11:04 AMB [id number]) Manual Assessments Soft Tissue Assessment Soft Tissue Mobility Assessment No pain reproduced with palpation through hip flexor and gluteals, some tightness in gluteals Joint Mobility Assessment Joint Mobility Assessment No pain with unilateral or central PAs throughout lumbar spine, pain with hip IR with OP on the left and with lumbar sidebeninding to the L PT-OP-J Posture/Palpation/Skin Start: 05/01/21 07:52 Freq: Status: Active Protocol: Document 05/09/21 09:45 AMB (Rec: 05/09/21 11:04 AMB [id number]) Posture Evaluation Comments Posture Comments significant increased lumbar lordosis. In supine medial malleolus appeared inferior on the left and ASIS superior on the left Palpation Assessment Location Two Palpation Location SI joint Palpation Details apparent lipoma on L SI joint One Palpation Location abdomen Palpation Details diastasis recti - bulging out with lifting head up PT-OP-K Range of Motion Start: 05/01/21 07:52 Freq: Status: Active Protocol: Document 05/09/21 09:45 AMB (Rec: 05/09/21 11:04 AMB [id number]) Lumbar Spine Range of Motion Lumbar Spine Active Degrees Testing Position Standing Flexion 45 Extension 10 Lateral Flexion Left 10 Lateral Flexion Right 20 Comments Pain with L sidebending Hip Goniometric Range of Motion Hip Left Passive Testing Position Supine Internal Rotation 25 Comments 37 degrees without pain on the right, painful on the left- reproduced back pain PT-OP-L Special Tests Start: 05/01/21 07:52 Freq: Status: Active Protocol: Document 05/09/21 09:45 AMB (Rec: 05/09/21 11:04 AMB [id number]) Special Tests Hip Special Tests HIEU Test Results - PT-OP-M Strength Start: 05/01/21 07:52 Freq: Status: Active Protocol: Document 05/09/21 09:45 AMB (Rec: 05/09/21 11:04 AMB [id number]) Hip Strength Hip Manual Muscle Testing Left Flexion (L2) 5 Normal Extension (S1) 5 Normal Abduction 5 Normal Adduction 5 Normal External Rotation 5 Normal Internal Rotation 5 Normal PT-OP-Q Treatments Start: 05/01/21 07:52 Freq: Status: Active Protocol: Document 06/17/21 11:15 AMB (Rec: 06/17/21 16:36 AMB [id number]) Therapeutic Exercises Supine Exercises hip flexor stretch Side right Reps/Minutes 30x3 Comments the tried in half kneeling PPT Reps/Minutes 10 Standing Exercises pelvic neutral Standing Exercise Name with mirror feedback Other Exercises cameron pose Reps/Minutes 10 Manual Therapy Treatment Soft Tissue Mobilization 1 Body Location sacrum, glutes, lumbar paraspinals Mobilization Type Myofascial Release Intensity/Depth Moderate Body Position Prone Comments with pillows under stomach Taping 1 Body Location diastasis Type of Tape Kinesio Tape Comments 4 I strips in herringbone pattern PT-OP-T Assessment and Plan Start: 05/01/21 07:52 Freq: Status: Active Protocol: Document 06/17/21 11:15 AMB (Rec: 06/17/21 16:36 AMB [id number]) Physical Therapy Assessment Goals Two Impairment HEP Short Term Goal (STG) Suzy will be independent with a HEP for core stability. STG Duration 4 weeks One Impairment Transfers Short Term Goal (STG) Suzy will roll over in bed without back/hip pain. STG Duration 4 weeks Java Swing Developer Goal (LTG) Suzy will move in and out of her car without hip/back pain. LTG Duration 8 weeks Assessment Summary Assessment Suzy felt some relaxation with manual therapy, does feel better when gets into posterior pelvic tilt, does well with diastasis taping. Physical Therapy Plan Next Visit Focus/Plan Next Note Type Treatment Note Next Visit Plan pelvic floor assessment next visit. Pt continues to feel difficulty maintaining neutral spine for any length of time, and feels that pelvic floor muscles are always tight.
--- NOTE | 2021-06-20 15:11 | PT.OTN ---
Current Diagnoses Other chronic pain (06/20/21) Pain in right hip (06/20/21) Pain in left hip (06/20/21) Low back pain, unspecified (06/20/21) Physical Therapy Treatment Note PT-OP-A Visit Information Start: 05/01/21 07:52 Freq: Status: Active Protocol: Document 06/20/21 14:43 AMB (Rec: 06/20/21 14:57 AMB [id number]) Out-Patient Physical Therapy Visit Information Visit Information Visit Type Treatment Note Visit Start Time 11:15 Visit Stop Time 12:00 Total Visit Minutes 45 Visit Number 8 PT-OP-B Current Condition Start: 05/01/21 07:52 Freq: Status: Active Protocol: Document 05/09/21 09:45 AMB (Rec: 05/09/21 09:58 AMB [id number]) Current Condition History of Current Condition Onset Date 2 years ago Current Complaints L low back pain and bilateral hip pain History of Current Condition Back can get locked up, both hips get sore a lot. Doesn't feel like there's a pattern. Denies stiffness. Cracking her back helps- does that probably every other day. Denies radiation down the leg. Does report diastasis recti and pelvic floor weakness after 3 kids. Youngest kid is 6. Current Functional Impairments (Reported) Functional Limitations- ADL's Getting in and out of the car, rolling over in bed are painful, extended sitting to drive is painful Personal Factors Other Personal Factors That May Effect Reports stress incontinence, Therapy/Recovery PT-OP-C Subjective Start: 05/01/21 07:52 Freq: Status: Active Protocol: Document 06/20/21 14:43 AMB (Rec: 06/20/21 15:10 AMB [id number]) OP-PT Subjective Patient Comments Patient Comments Pt reports back is feeling better PT-OP-F Manual Assessment Start: 05/01/21 07:52 Freq: Status: Active Protocol: Document 05/09/21 09:45 AMB (Rec: 05/09/21 11:04 AMB [id number]) Manual Assessments Soft Tissue Assessment Soft Tissue Mobility Assessment No pain reproduced with palpation through hip flexor and gluteals, some tightness in gluteals Joint Mobility Assessment Joint Mobility Assessment No pain with unilateral or central PAs throughout lumbar spine, pain with hip IR with OP on the left and with lumbar sidebeninding to the L PT-OP-J Posture/Palpation/Skin Start: 05/01/21 07:52 Freq: Status: Active Protocol: Document 05/09/21 09:45 AMB (Rec: 05/09/21 11:04 AMB [id number]) Posture Evaluation Comments Posture Comments significant increased lumbar lordosis. In supine medial malleolus appeared inferior on the left and ASIS superior on the left Palpation Assessment Location Two Palpation Location SI joint Palpation Details apparent lipoma on L SI joint One Palpation Location abdomen Palpation Details diastasis recti - bulging out with lifting head up PT-OP-K Range of Motion Start: 05/01/21 07:52 Freq: Status: Active Protocol: Document 05/09/21 09:45 AMB (Rec: 05/09/21 11:04 AMB [id number]) Lumbar Spine Range of Motion Lumbar Spine Active Degrees Testing Position Standing Flexion 45 Extension 10 Lateral Flexion Left 10 Lateral Flexion Right 20 Comments Pain with L sidebending Hip Goniometric Range of Motion Hip Left Passive Testing Position Supine Internal Rotation 25 Comments 37 degrees without pain on the right, painful on the left- reproduced back pain PT-OP-L Special Tests Start: 05/01/21 07:52 Freq: Status: Active Protocol: Document 05/09/21 09:45 AMB (Rec: 05/09/21 11:04 AMB [id number]) Special Tests Hip Special Tests HIEU Test Results - PT-OP-M Strength Start: 05/01/21 07:52 Freq: Status: Active Protocol: Document 05/09/21 09:45 AMB (Rec: 05/09/21 11:04 AMB [id number]) Hip Strength Hip Manual Muscle Testing Left Flexion (L2) 5 Normal Extension (S1) 5 Normal Abduction 5 Normal Adduction 5 Normal External Rotation 5 Normal Internal Rotation 5 Normal PT-OP-Q Treatments Start: 05/01/21 07:52 Freq: Status: Active Protocol: Document 06/20/21 14:43 AMB (Rec: 06/20/21 15:10 AMB [id number]) Therapeutic Exercises Supine Exercises pelvic floor Supine Exercise Name pt with difficulty minh more than a second, difficulty with relax Comments legs elevated, quick flicks Manual Therapy Treatment Soft Tissue Mobilization 1 Body Location sacrum, glutes, lumbar paraspinals Mobilization Type Myofascial Release Intensity/Depth Moderate Body Position Prone Comments with pillows under stomach PT-OP-T Assessment and Plan Start: 05/01/21 07:52 Freq: Status: Active Protocol: Document 06/20/21 14:43 AMB (Rec: 06/20/21 14:57 AMB [id number]) Physical Therapy Assessment Goals Two Impairment HEP Short Term Goal (STG) Suzy will be independent with a HEP for core stability. STG Duration 4 weeks One Impairment Transfers Short Term Goal (STG) Suzy will roll over in bed without back/hip pain. STG Duration 4 weeks Penitentiary Goal (LTG) Suzy will move in and out of her car without hip/back pain. LTG Duration 8 weeks Assessment Summary Assessment Pt did have more skin sensitivity with kinesiotape, but had decreased back sx after manual therapy. Feeling like hip is ok. Pelvic floor was quite weak 1/5 with most contraction at 6 oclock, could consider NMES in the future.
--- NOTE | 2021-07-08 12:00 | PT.OTN ---
Current Diagnoses Other chronic pain (07/08/21) Pain in right hip (07/08/21) Pain in left hip (07/08/21) Low back pain, unspecified (07/08/21) Physical Therapy Treatment Note PT-OP-A Visit Information Start: 05/01/21 07:52 Freq: Status: Active Protocol: Document 07/08/21 16:02 AMB (Rec: 07/08/21 16:02 AMB [id number]) Out-Patient Physical Therapy Visit Information Visit Information Visit Type Progress Note Visit Start Time 11:15 Visit Stop Time 12:00 Total Visit Minutes 45 Visit Number 1 PT-OP-B Current Condition Start: 05/01/21 07:52 Freq: Status: Active Protocol: Document 05/09/21 09:45 AMB (Rec: 05/09/21 09:58 AMB [id number]) Current Condition History of Current Condition Onset Date 2 years ago Current Complaints L low back pain and bilateral hip pain History of Current Condition Back can get locked up, both hips get sore a lot. Doesn't feel like there's a pattern. Denies stiffness. Cracking her back helps- does that probably every other day. Denies radiation down the leg. Does report diastasis recti and pelvic floor weakness after 3 kids. Youngest kid is 6. Current Functional Impairments (Reported) Functional Limitations- ADL's Getting in and out of the car, rolling over in bed are painful, extended sitting to drive is painful Personal Factors Other Personal Factors That May Effect Reports stress incontinence, Therapy/Recovery PT-OP-C Subjective Start: 05/01/21 07:52 Freq: Status: Active Protocol: Document 07/08/21 11:15 AMB (Rec: 07/09/21 08:51 AMB [id number]) OP-PT Subjective Patient Comments Patient Comments Suzy reports she was traveling in [place] and [place] for the past 3 weeks and her hips and back feel a lot better. She has been noticing her right knee. PT-OP-F Manual Assessment Start: 05/01/21 07:52 Freq: Status: Active Protocol: Document 05/09/21 09:45 AMB (Rec: 05/09/21 11:04 AMB [id number]) Manual Assessments Soft Tissue Assessment Soft Tissue Mobility Assessment No pain reproduced with palpation through hip flexor and gluteals, some tightness in gluteals Joint Mobility Assessment Joint Mobility Assessment No pain with unilateral or central PAs throughout lumbar spine, pain with hip IR with OP on the left and with lumbar sidebeninding to the L PT-OP-J Posture/Palpation/Skin Start: 05/01/21 07:52 Freq: Status: Active Protocol: Document 05/09/21 09:45 AMB (Rec: 05/09/21 11:04 AMB [id number]) Posture Evaluation Comments Posture Comments significant increased lumbar lordosis. In supine medial malleolus appeared inferior on the left and ASIS superior on the left Palpation Assessment Location Two Palpation Location SI joint Palpation Details apparent lipoma on L SI joint One Palpation Location abdomen Palpation Details diastasis recti - bulging out with lifting head up PT-OP-K Range of Motion Start: 05/01/21 07:52 Freq: Status: Active Protocol: Document 05/09/21 09:45 AMB (Rec: 05/09/21 11:04 AMB [id number]) Lumbar Spine Range of Motion Lumbar Spine Active Degrees Testing Position Standing Flexion 45 Extension 10 Lateral Flexion Left 10 Lateral Flexion Right 20 Comments Pain with L sidebending Hip Goniometric Range of Motion Hip Left Passive Testing Position Supine Internal Rotation 25 Comments 37 degrees without pain on the right, painful on the left- reproduced back pain PT-OP-L Special Tests Start: 05/01/21 07:52 Freq: Status: Active Protocol: Document 05/09/21 09:45 AMB (Rec: 05/09/21 11:04 AMB [id number]) Special Tests Hip Special Tests HIEU Test Results - PT-OP-M Strength Start: 05/01/21 07:52 Freq: Status: Active Protocol: Document 05/09/21 09:45 AMB (Rec: 05/09/21 11:04 AMB [id number]) Hip Strength Hip Manual Muscle Testing Left Flexion (L2) 5 Normal Extension (S1) 5 Normal Abduction 5 Normal Adduction 5 Normal External Rotation 5 Normal Internal Rotation 5 Normal PT-OP-Q Treatments Start: 05/01/21 07:52 Freq: Status: Active Protocol: Document 07/08/21 11:15 AMB (Rec: 07/09/21 08:51 AMB [id number]) Therapeutic Exercises Supine Exercises segmental bridge Reps/Minutes 10 Comments TA, PF IT band stretch Side right Reps/Minutes 30x3 pelvic floor Supine Exercise Name pt with difficulty minh more than a second, difficulty with relax Comments legs elevated, quick flicks PPT Reps/Minutes 10 Standing Exercises single leg squat Side right Reps/Minutes 10 Comments partial cued hips back posture stair step ups Standing Exercise Name cues for full knee extension when ascending Comments 6 stairs, then full flight of stairs pelvic neutral Standing Exercise Name with mirror feedback Comments avoiding excessive lumbar lordosis PT-OP-T Assessment and Plan Start: 05/01/21 07:52 Freq: Status: Active Protocol: Document 07/08/21 11:20 AMB (Rec: 07/08/21 12:04 AMB [id number]) Physical Therapy Assessment Goals Two Impairment HEP Short Term Goal (STG) Suzy will be independent with a HEP for core stability. STG Duration 4 weeks- progress made One Impairment Transfers Short Term Goal (STG) Suzy will roll over in bed without back/hip pain. STG Duration 4 weeks Bend Sorter Goal (LTG) Suzy will move in and out of her car without hip/back pain. LTG Duration MET Assessment Summary Assessment 4/10 pain at low back, 3/10 at knee, currently not having hip pain. Overall Suzy has shown good improvement of her hip pain, is still having back pain. Would benefit from continued PT to better facilitate her core including pelvic floor and work on body mechanics and posture as deficits there continue to exacerbate pain complaints. Pt continues to have pain over what appears to this PT to be a small lipoma, but pain is decreased with better body mechanics, core stability, and posture. Physical Therapy Plan Frequency and Duration Frequency of Treatment 2x/Week Duration of Treatment 8 weeks Plan of Care Start Date 07/08/21 Plan of Care End Date 09/02/21 Therapeutic Interventions Therapeutic Interventions Home Exercise Program,Manual Therapy,Neuromuscular Re- education,Self-Care/Home Management,Therapeutic Activities,Therapeutic Exercises Modalities Cold Pack/Ice Massage,Electric Stimulation,Hot Packs Next Visit Focus/Plan Next Note Type Treatment Note Next Visit Plan Continue to work on core stability- body mechanics- reducing lumbar lordosis but increasing hip hinge with squat to better facilitate glutes, full knee extension with stairs. Manual for back as needed.
--- NOTE | 2021-07-08 12:00 | PT.OPPOC ---
Physical, Occupational & Speech Therapy At [facility] Current Diagnoses Other chronic pain (07/08/21) Pain in right hip (07/08/21) Pain in left hip (07/08/21) Low back pain, unspecified (07/08/21) Visit Care Team Role Provider Type Celso Norton MD Attending Provider Physician Family Provider Primary Care Provider Referring Provider Specialty: Family Practice Address: [address] [place] [address], [facility] Email: [email or web address] Plan Of Care PT-OP-T Assessment and Plan Start: 05/01/21 07:52 Freq: Status: Active Protocol: Document 07/08/21 11:20 AMB (Rec: 07/08/21 12:04 AMB [id number]) Physical Therapy Assessment Goals Two Impairment HEP Short Term Goal (STG) Suzy will be independent with a HEP for core stability. STG Duration 4 weeks- progress made One Impairment Transfers Short Term Goal (STG) Suzy will roll over in bed without back/hip pain. STG Duration 4 weeks Assisted Goal (LTG) Suzy will move in and out of her car without hip/back pain. LTG Duration MET Assessment Summary Assessment 4/10 pain at low back, 3/10 at knee, currently not having hip pain. Overall Suzy has shown good improvement of her hip pain, is still having back pain. Would benefit from continued PT to better facilitate her core including pelvic floor and work on body mechanics and posture as deficits there continue to exacerbate pain complaints. Pt continues to have pain over what appears to this PT to be a small lipoma, but pain is decreased with better body mechanics, core stability, and posture. Physical Therapy Plan Frequency and Duration Frequency of Treatment 2x/Week Duration of Treatment 8 weeks Plan of Care Start Date 07/08/21 Plan of Care End Date 09/02/21 Therapeutic Interventions Therapeutic Interventions Home Exercise Program,Manual Therapy,Neuromuscular Re- education,Self-Care/Home Management,Therapeutic Activities,Therapeutic Exercises Modalities Cold Pack/Ice Massage,Electric Stimulation,Hot Packs Next Visit Focus/Plan Next Note Type Treatment Note Next Visit Plan Continue to work on core stability- body mechanics- reducing lumbar lordosis but increasing hip hinge with squat to better facilitate glutes, full knee extension with stairs. Manual for back as needed. Plan of Care Dates Plan of Care Start Date 07/08/21 Plan of Care End Date 09/02/21 Electronically Signed by: Ketty Ospina, PT 07/09/21 [id number] If you are in agreement with this Plan of Care, please return a signed and dated copy. I have reviewed this Plan of Care and certify that the skilled therapy services above are required to meet the patient?s needs. Physician Signature Date Printed Name and Credentials Clinical Instructor Signature Printed Name and Credentials
--- NOTE | 2021-07-15 15:32 | PT.OTN ---
Current Diagnoses Other chronic pain (07/15/21) Pain in right hip (07/15/21) Pain in left hip (07/15/21) Low back pain, unspecified (07/15/21) Physical Therapy Treatment Note PT-OP-A Visit Information Start: 05/01/21 07:52 Freq: Status: Active Protocol: Document 07/15/21 13:42 MA (Rec: 07/15/21 14:25 MA [id number]) Out-Patient Physical Therapy Visit Information Visit Information Visit Type Treatment Note Visit Start Time 13:45 Visit Stop Time 14:25 Total Visit Minutes 40 Visit Number 2 Number of HORSE IDENTIFIER Visits 1 PT-OP-B Current Condition Start: 05/01/21 07:52 Freq: Status: Active Protocol: Document 05/09/21 09:45 AMB (Rec: 05/09/21 09:58 AMB [id number]) Current Condition History of Current Condition Onset Date 2 years ago Current Complaints L low back pain and bilateral hip pain History of Current Condition Back can get locked up, both hips get sore a lot. Doesn't feel like there's a pattern. Denies stiffness. Cracking her back helps- does that probably every other day. Denies radiation down the leg. Does report diastasis recti and pelvic floor weakness after 3 kids. Youngest kid is 6. Current Functional Impairments (Reported) Functional Limitations- ADL's Getting in and out of the car, rolling over in bed are painful, extended sitting to drive is painful Personal Factors Other Personal Factors That May Effect Reports stress incontinence, Therapy/Recovery PT-OP-C Subjective Start: 05/01/21 07:52 Freq: Status: Active Protocol: Document 07/15/21 13:42 MA (Rec: 07/15/21 14:25 MA [id number]) OP-PT Subjective Patient Comments Patient Comments Pt feels her diet and the weather are what affect her hip pain. PT-OP-F Manual Assessment Start: 05/01/21 07:52 Freq: Status: Active Protocol: Document 05/09/21 09:45 AMB (Rec: 05/09/21 11:04 AMB [id number]) Manual Assessments Soft Tissue Assessment Soft Tissue Mobility Assessment No pain reproduced with palpation through hip flexor and gluteals, some tightness in gluteals Joint Mobility Assessment Joint Mobility Assessment No pain with unilateral or central PAs throughout lumbar spine, pain with hip IR with OP on the left and with lumbar sidebeninding to the L PT-OP-J Posture/Palpation/Skin Start: 05/01/21 07:52 Freq: Status: Active Protocol: Document 05/09/21 09:45 AMB (Rec: 05/09/21 11:04 AMB [id number]) Posture Evaluation Comments Posture Comments significant increased lumbar lordosis. In supine medial malleolus appeared inferior on the left and ASIS superior on the left Palpation Assessment Location Two Palpation Location SI joint Palpation Details apparent lipoma on L SI joint One Palpation Location abdomen Palpation Details diastasis recti - bulging out with lifting head up PT-OP-K Range of Motion Start: 05/01/21 07:52 Freq: Status: Active Protocol: Document 05/09/21 09:45 AMB (Rec: 05/09/21 11:04 AMB [id number]) Lumbar Spine Range of Motion Lumbar Spine Active Degrees Testing Position Standing Flexion 45 Extension 10 Lateral Flexion Left 10 Lateral Flexion Right 20 Comments Pain with L sidebending Hip Goniometric Range of Motion Hip Left Passive Testing Position Supine Internal Rotation 25 Comments 37 degrees without pain on the right, painful on the left- reproduced back pain PT-OP-L Special Tests Start: 05/01/21 07:52 Freq: Status: Active Protocol: Document 05/09/21 09:45 AMB (Rec: 05/09/21 11:04 AMB [id number]) Special Tests Hip Special Tests HIEU Test Results - PT-OP-M Strength Start: 05/01/21 07:52 Freq: Status: Active Protocol: Document 05/09/21 09:45 AMB (Rec: 05/09/21 11:04 AMB [id number]) Hip Strength Hip Manual Muscle Testing Left Flexion (L2) 5 Normal Extension (S1) 5 Normal Abduction 5 Normal Adduction 5 Normal External Rotation 5 Normal Internal Rotation 5 Normal PT-OP-Q Treatments Start: 05/01/21 07:52 Freq: Status: Active Protocol: Document 07/15/21 13:42 MA (Rec: 07/15/21 14:25 MA [id number]) Therapeutic Exercises Supine Exercises Core Supine Exercise Name 90/90 knees-alternating toe taps Side bilateral Reps/Minutes 2x10 Comments cues for TA engagement segmental bridge Reps/Minutes 10 Comments TA IT band stretch Side right Reps/Minutes 30x3 Standing Exercises Side Steps Standing Exercise Name in mini squat Side bilateral Equipment Used red band Reps/Minutes 4x20ft HS stretch Side bilateral Reps/Minutes 2x30 ea single leg squat Side right Reps/Minutes 10 Comments partial cued hips back posture stair step ups Standing Exercise Name ascending and descending stairs today Equipment Used lobby stairs Comments full ext during step ups, increasing step width for step down Other Exercises Bird dog Other Exercise Name 1. LE ext 2. UE/LE together Side bilateral Reps/Minutes x10 ea cameron pose Reps/Minutes x30 PT-OP-T Assessment and Plan Start: 05/01/21 07:52 Freq: Status: Active Protocol: Document 07/15/21 13:42 MA (Rec: 07/15/21 14:25 MA [id number]) Physical Therapy Assessment Goals Two Impairment HEP Short Term Goal (STG) Suzy will be independent with a HEP for core stability. STG Duration 4 weeks- progress made One Impairment Transfers Short Term Goal (STG) Suzy will roll over in bed without back/hip pain. STG Duration 4 weeks Senior Care Goal (LTG) Suzy will move in and out of her car without hip/back pain. LTG Duration MET Assessment Summary Assessment Pt has no back or hip pain throughout session when focusing on her form. Suzy shows some tightness through hamstrings L>R and is initially unable to straighten knee during bird dog exercise. After HS stretches, pt improves knee extension. While desceding stairs, pt adducts RLE and has minor R knee pain. Instructed pt to increase step width on stairs with pt having no pain after increasing step width. Worked on strengthening hip ABD to improve LE positioning and ended session with TA exercises. Pt fatigues easily during core exercises and requires less reps during exercises for improved TA engagement. Physical Therapy Plan Frequency and Duration Frequency of Treatment 2x/Week Duration of Treatment 8 weeks Plan of Care Start Date 07/08/21 Plan of Care End Date 09/02/21 Therapeutic Interventions Therapeutic Interventions Home Exercise Program,Manual Therapy,Neuromuscular Re- education,Self-Care/Home Management,Therapeutic Activities,Therapeutic Exercises Modalities Cold Pack/Ice Massage,Electric Stimulation,Hot Packs Next Visit Focus/Plan Next Note Type Treatment Note Next Visit Plan Add core exercises to HEP next session. Continue to work on core stability- body mechanics - reducing lumbar lordosis but increasing hip hinge with squat to better facilitate glutes, full knee extension with stairs. Manual for back as needed.
--- NOTE | 2021-07-18 16:19 | PT.OTN ---
Current Diagnoses Other chronic pain (07/18/21) Pain in right hip (07/18/21) Pain in left hip (07/18/21) Low back pain, unspecified (07/18/21) Physical Therapy Treatment Note PT-OP-A Visit Information Start: 05/01/21 07:52 Freq: Status: Active Protocol: Document 07/18/21 13:01 AMB (Rec: 07/18/21 13:47 AMB [id number]) Out-Patient Physical Therapy Visit Information Visit Information Visit Type Treatment Note Visit Start Time 13:00 Visit Stop Time 13:45 Total Visit Minutes 45 Visit Number 11 PT-OP-B Current Condition Start: 05/01/21 07:52 Freq: Status: Active Protocol: Document 05/09/21 09:45 AMB (Rec: 05/09/21 09:58 AMB [id number]) Current Condition History of Current Condition Onset Date 2 years ago Current Complaints L low back pain and bilateral hip pain History of Current Condition Back can get locked up, both hips get sore a lot. Doesn't feel like there's a pattern. Denies stiffness. Cracking her back helps- does that probably every other day. Denies radiation down the leg. Does report diastasis recti and pelvic floor weakness after 3 kids. Youngest kid is 6. Current Functional Impairments (Reported) Functional Limitations- ADL's Getting in and out of the car, rolling over in bed are painful, extended sitting to drive is painful Personal Factors Other Personal Factors That May Effect Reports stress incontinence, Therapy/Recovery PT-OP-C Subjective Start: 05/01/21 07:52 Freq: Status: Active Protocol: Document 07/18/21 13:01 AMB (Rec: 07/18/21 13:47 AMB [id number]) OP-PT Subjective Patient Comments Patient Comments Pt feels like knee and hips are feeling good. Low back can still be a thing (felt it after clearing brush) but ok today. PT-OP-F Manual Assessment Start: 05/01/21 07:52 Freq: Status: Active Protocol: Document 05/09/21 09:45 AMB (Rec: 05/09/21 11:04 AMB [id number]) Manual Assessments Soft Tissue Assessment Soft Tissue Mobility Assessment No pain reproduced with palpation through hip flexor and gluteals, some tightness in gluteals Joint Mobility Assessment Joint Mobility Assessment No pain with unilateral or central PAs throughout lumbar spine, pain with hip IR with OP on the left and with lumbar sidebeninding to the L PT-OP-J Posture/Palpation/Skin Start: 05/01/21 07:52 Freq: Status: Active Protocol: Document 05/09/21 09:45 AMB (Rec: 05/09/21 11:04 AMB [id number]) Posture Evaluation Comments Posture Comments significant increased lumbar lordosis. In supine medial malleolus appeared inferior on the left and ASIS superior on the left Palpation Assessment Location Two Palpation Location SI joint Palpation Details apparent lipoma on L SI joint One Palpation Location abdomen Palpation Details diastasis recti - bulging out with lifting head up PT-OP-K Range of Motion Start: 05/01/21 07:52 Freq: Status: Active Protocol: Document 05/09/21 09:45 AMB (Rec: 05/09/21 11:04 AMB [id number]) Lumbar Spine Range of Motion Lumbar Spine Active Degrees Testing Position Standing Flexion 45 Extension 10 Lateral Flexion Left 10 Lateral Flexion Right 20 Comments Pain with L sidebending Hip Goniometric Range of Motion Hip Left Passive Testing Position Supine Internal Rotation 25 Comments 37 degrees without pain on the right, painful on the left- reproduced back pain PT-OP-L Special Tests Start: 05/01/21 07:52 Freq: Status: Active Protocol: Document 05/09/21 09:45 AMB (Rec: 05/09/21 11:04 AMB [id number]) Special Tests Hip Special Tests HIEU Test Results - PT-OP-M Strength Start: 05/01/21 07:52 Freq: Status: Active Protocol: Document 05/09/21 09:45 AMB (Rec: 05/09/21 11:04 AMB [id number]) Hip Strength Hip Manual Muscle Testing Left Flexion (L2) 5 Normal Extension (S1) 5 Normal Abduction 5 Normal Adduction 5 Normal External Rotation 5 Normal Internal Rotation 5 Normal PT-OP-Q Treatments Start: 05/01/21 07:52 Freq: Status: Active Protocol: Document 07/18/21 13:00 AMB (Rec: 07/18/21 16:19 AMB [id number]) Therapeutic Exercises Supine Exercises segmental bridge Reps/Minutes 10 Comments TA DKTC Reps/Minutes 30x2 table top Reps/Minutes 10 Comments cues for TA PPT Reps/Minutes 10 Other Exercises Bird dog Other Exercise Name 1. LE ext 2. UE/LE together Side bilateral Reps/Minutes x10 ea camerno pose Reps/Minutes x30 cat cow Reps/Minutes 10 Manual Therapy Treatment Soft Tissue Mobilization 1 Body Location sacrum, glutes, lumbar paraspinals Mobilization Type Myofascial Release Intensity/Depth Moderate Body Position Prone Comments with pillows under stomach PT-OP-T Assessment and Plan Start: 05/01/21 07:52 Freq: Status: Active Protocol: Document 07/18/21 13:01 AMB (Rec: 07/18/21 13:47 [facility] [id number]) Physical Therapy Assessment Goals Two Impairment HEP Short Term Goal (STG) Suzy will be independent with a HEP for core stability. STG Duration 4 weeks- progress made One Impairment Transfers Short Term Goal (STG) Suzy will roll over in bed without back/hip pain. STG Duration 4 weeks Half-Way Goal (LTG) Suzy will move in and out of her car without hip/back pain. LTG Duration MET Assessment Summary Assessment Suzy felt reduced symptoms today after manual, it is difficult for her to feel a stretch in her lumbar spine. She would benefit from continued core stabilization. Physical Therapy Plan Next Visit Focus/Plan Next Note Type Treatment Note Next Visit Plan Continued manual therapy and core stability as needed
--- NOTE | 2021-08-08 12:05 | PT.OTN ---
Current Diagnoses Other chronic pain (08/08/21) Pain in right hip (08/08/21) Pain in left hip (08/08/21) Low back pain, unspecified (08/08/21) Physical Therapy Treatment Note PT-OP-A Visit Information Start: 05/01/21 07:52 Freq: Status: Active Protocol: Document 08/08/21 09:07 AMB (Rec: 08/08/21 09:47 AMB [id number]) Out-Patient Physical Therapy Visit Information Visit Information Visit Type Treatment Note Visit Start Time 09:05 Visit Stop Time 09:45 Total Visit Minutes 45 Visit Number 12 PT-OP-B Current Condition Start: 05/01/21 07:52 Freq: Status: Active Protocol: Document 05/09/21 09:45 AMB (Rec: 05/09/21 09:58 AMB [id number]) Current Condition History of Current Condition Onset Date 2 years ago Current Complaints L low back pain and bilateral hip pain History of Current Condition Back can get locked up, both hips get sore a lot. Doesn't feel like there's a pattern. Denies stiffness. Cracking her back helps- does that probably every other day. Denies radiation down the leg. Does report diastasis recti and pelvic floor weakness after 3 kids. Youngest kid is 6. Current Functional Impairments (Reported) Functional Limitations- ADL's Getting in and out of the car, rolling over in bed are painful, extended sitting to drive is painful Personal Factors Other Personal Factors That May Effect Reports stress incontinence, Therapy/Recovery PT-OP-C Subjective Start: 05/01/21 07:52 Freq: Status: Active Protocol: Document 08/08/21 11:56 AMB (Rec: 08/08/21 12:05 AMB [id number]) OP-PT Subjective Patient Comments Patient Comments Pt noticing more low back pain , but hasn't really been stretching, and has been driving a lot. Notices stress and sugar seem to increase her hip pain. PT-OP-F Manual Assessment Start: 05/01/21 07:52 Freq: Status: Active Protocol: Document 05/09/21 09:45 AMB (Rec: 05/09/21 11:04 AMB [id number]) Manual Assessments Soft Tissue Assessment Soft Tissue Mobility Assessment No pain reproduced with palpation through hip flexor and gluteals, some tightness in gluteals Joint Mobility Assessment Joint Mobility Assessment No pain with unilateral or central PAs throughout lumbar spine, pain with hip IR with OP on the left and with lumbar sidebeninding to the L PT-OP-J Posture/Palpation/Skin Start: 05/01/21 07:52 Freq: Status: Active Protocol: Document 05/09/21 09:45 AMB (Rec: 05/09/21 11:04 AMB [id number]) Posture Evaluation Comments Posture Comments significant increased lumbar lordosis. In supine medial malleolus appeared inferior on the left and ASIS superior on the left Palpation Assessment Location Two Palpation Location SI joint Palpation Details apparent lipoma on L SI joint One Palpation Location abdomen Palpation Details diastasis recti - bulging out with lifting head up PT-OP-K Range of Motion Start: 05/01/21 07:52 Freq: Status: Active Protocol: Document 05/09/21 09:45 AMB (Rec: 05/09/21 11:04 AMB [id number]) Lumbar Spine Range of Motion Lumbar Spine Active Degrees Testing Position Standing Flexion 45 Extension 10 Lateral Flexion Left 10 Lateral Flexion Right 20 Comments Pain with L sidebending Hip Goniometric Range of Motion Hip Left Passive Testing Position Supine Internal Rotation 25 Comments 37 degrees without pain on the right, painful on the left- reproduced back pain PT-OP-L Special Tests Start: 05/01/21 07:52 Freq: Status: Active Protocol: Document 05/09/21 09:45 AMB (Rec: 05/09/21 11:04 AMB [id number]) Special Tests Hip Special Tests HIEU Test Results - PT-OP-M Strength Start: 05/01/21 07:52 Freq: Status: Active Protocol: Document 05/09/21 09:45 AMB (Rec: 05/09/21 11:04 AMB [id number]) Hip Strength Hip Manual Muscle Testing Left Flexion (L2) 5 Normal Extension (S1) 5 Normal Abduction 5 Normal Adduction 5 Normal External Rotation 5 Normal Internal Rotation 5 Normal PT-OP-Q Treatments Start: 05/01/21 07:52 Freq: Status: Active Protocol: Document 08/08/21 11:56 AMB (Rec: 08/08/21 12:05 AMB [id number]) Therapeutic Exercises Sitting Exercises pelvic tilts Reps/Minutes 2x10 Standing Exercises stretch at bar Standing Exercise Name squat and stretch at bar Reps/Minutes 30x2 Manual Therapy Treatment Soft Tissue Mobilization 1 Body Location sacrum, glutes, lumbar paraspinals Mobilization Type Myofascial Release Intensity/Depth Moderate Body Position Prone Comments with pillows under stomach PT-OP-T Assessment and Plan Start: 05/01/21 07:52 Freq: Status: Active Protocol: Document 08/08/21 11:56 AMB (Rec: 08/08/21 12:05 AMB [id number]) Physical Therapy Assessment Goals Two Impairment HEP Short Term Goal (STG) Suzy will be independent with a HEP for core stability. STG Duration 4 weeks- progress made One Impairment Transfers Short Term Goal (STG) Suzy will roll over in bed without back/hip pain. STG Duration 4 weeks Financial Advocate Goal (LTG) Suzy will move in and out of her car without hip/back pain. LTG Duration MET Assessment Summary Assessment Did feel a good stretch with squat/lat stretch at bar, encouraged to continue pelvic tilts while in car. Physical Therapy Plan Next Visit Focus/Plan Next Note Type Treatment Note Next Visit Plan Continued manual therapy and core stability as needed
--- NOTE | 2021-08-15 11:25 | PT.OTN ---
Current Diagnoses Other chronic pain (08/15/21) Pain in right hip (08/15/21) Pain in left hip (08/15/21) Low back pain, unspecified (08/15/21) Physical Therapy Treatment Note PT-OP-A Visit Information Start: 05/01/21 07:52 Freq: Status: Active Protocol: Document 08/15/21 08:57 NBM (Rec: 08/15/21 11:24 NBM [id number]) Out-Patient Physical Therapy Visit Information Visit Information Visit Type Treatment Note Visit Note Pt arrived late today. Visit Start Time 09:11 Visit Stop Time 09:48 Total Visit Minutes 37 Visit Number 13 Number of INSURANCE TERRITORY MANAGER Visits 1 PT-OP-B Current Condition Start: 05/01/21 07:52 Freq: Status: Active Protocol: Document 05/09/21 09:45 AMB (Rec: 05/09/21 09:58 AMB [id number]) Current Condition History of Current Condition Onset Date 2 years ago Current Complaints L low back pain and bilateral hip pain History of Current Condition Back can get locked up, both hips get sore a lot. Doesn't feel like there's a pattern. Denies stiffness. Cracking her back helps- does that probably every other day. Denies radiation down the leg. Does report diastasis recti and pelvic floor weakness after 3 kids. Youngest kid is 6. Current Functional Impairments (Reported) Functional Limitations- ADL's Getting in and out of the car, rolling over in bed are painful, extended sitting to drive is painful Personal Factors Other Personal Factors That May Effect Reports stress incontinence, Therapy/Recovery PT-OP-C Subjective Start: 05/01/21 07:52 Freq: Status: Active Protocol: Document 08/15/21 08:57 NBM (Rec: 08/15/21 11:24 NBM [id number]) OP-PT Subjective Patient Comments Patient Comments Pt notices relief from stretching and massage but has not been doing HEP consistently. She will seek a massage therapist and try stretching in the morning when she wakes up. She has an appointment to check on the possible lipoma the third week of September. PT-OP-F Manual Assessment Start: 05/01/21 07:52 Freq: Status: Active Protocol: Document 05/09/21 09:45 AMB (Rec: 05/09/21 11:04 AMB [id number]) Manual Assessments Soft Tissue Assessment Soft Tissue Mobility Assessment No pain reproduced with palpation through hip flexor and gluteals, some tightness in gluteals Joint Mobility Assessment Joint Mobility Assessment No pain with unilateral or central PAs throughout lumbar spine, pain with hip IR with OP on the left and with lumbar sidebeninding to the L PT-OP-J Posture/Palpation/Skin Start: 05/01/21 07:52 Freq: Status: Active Protocol: Document 05/09/21 09:45 AMB (Rec: 05/09/21 11:04 AMB [id number]) Posture Evaluation Comments Posture Comments significant increased lumbar lordosis. In supine medial malleolus appeared inferior on the left and ASIS superior on the left Palpation Assessment Location Two Palpation Location SI joint Palpation Details apparent lipoma on L SI joint One Palpation Location abdomen Palpation Details diastasis recti - bulging out with lifting head up PT-OP-K Range of Motion Start: 05/01/21 07:52 Freq: Status: Active Protocol: Document 05/09/21 09:45 AMB (Rec: 05/09/21 11:04 AMB [id number]) Lumbar Spine Range of Motion Lumbar Spine Active Degrees Testing Position Standing Flexion 45 Extension 10 Lateral Flexion Left 10 Lateral Flexion Right 20 Comments Pain with L sidebending Hip Goniometric Range of Motion Hip Left Passive Testing Position Supine Internal Rotation 25 Comments 37 degrees without pain on the right, painful on the left- reproduced back pain PT-OP-L Special Tests Start: 05/01/21 07:52 Freq: Status: Active Protocol: Document 05/09/21 09:45 AMB (Rec: 05/09/21 11:04 AMB [id number]) Special Tests Hip Special Tests HIEU Test Results - PT-OP-M Strength Start: 05/01/21 07:52 Freq: Status: Active Protocol: Document 05/09/21 09:45 AMB (Rec: 05/09/21 11:04 AMB [id number]) Hip Strength Hip Manual Muscle Testing Left Flexion (L2) 5 Normal Extension (S1) 5 Normal Abduction 5 Normal Adduction 5 Normal External Rotation 5 Normal Internal Rotation 5 Normal PT-OP-Q Treatments Start: 05/01/21 07:52 Freq: Status: Active Protocol: Document 08/15/21 08:57 NBM (Rec: 08/15/21 11:24 NBM [id number]) Therapeutic Exercises Supine Exercises IT band stretch Side bilateral Reps/Minutes 30x3 DKTC Reps/Minutes 30x2 Manual Therapy Treatment Soft Tissue Mobilization 1 Body Location sacrum, glutes, lumbar paraspinals Mobilization Type Myofascial Release Intensity/Depth Moderate Body Position Prone Comments with pillows under stomach Noticed another nodule on R lumbar area- no pain or tenderness with palpation PT-OP-T Assessment and Plan Start: 05/01/21 07:52 Freq: Status: Active Protocol: Document 08/15/21 08:57 NBM (Rec: 08/15/21 11:24 NBM [id number]) Physical Therapy Assessment Goals Two Impairment HEP Short Term Goal (STG) Suzy will be independent with a HEP for core stability. STG Duration 4 weeks- progress made One Impairment Transfers Short Term Goal (STG) Suzy will roll over in bed without back/hip pain. STG Duration 4 weeks Halfway Goal (LTG) Suzy will move in and out of her car without hip/back pain. LTG Duration MET Assessment Summary Assessment Reported relief after treatment session. Tension in hips and low back relieved. Second nodule was noted in R lumbar region as well which pt will also address with at upcoming September appt. Physical Therapy Plan Next Visit Focus/Plan Next Note Type Treatment Note Next Visit Plan Continued manual therapy and core stability as needed
--- NOTE | 2021-09-26 14:31 | PT.OPDS ---
Current Diagnoses Other chronic pain (08/15/21) Pain in right hip (08/15/21) Pain in left hip (08/15/21) Low back pain, unspecified (08/15/21) Visit Care Team Role Provider Type Celso Norton MD Attending Provider Physician Family Provider Primary Care Provider Referring Provider Specialty: Family Practice Address: [address] [place] [address] Email: [email or web address] Visit Number Visit Number 13 Discharge Summary PT-OP-B Current Condition Start: 05/01/21 07:52 Freq: Status: Active Protocol: Document 05/09/21 09:45 AMB (Rec: 05/09/21 09:58 AMB [id number]) Current Condition History of Current Condition Onset Date 2 years ago Current Complaints L low back pain and bilateral hip pain History of Current Condition Back can get locked up, both hips get sore a lot. Doesn't feel like there's a pattern. Denies stiffness. Cracking her back helps- does that probably every other day. Denies radiation down the leg. Does report diastasis recti and pelvic floor weakness after 3 kids. Youngest kid is 5. Current Functional Impairments (Reported) Functional Limitations- ADL's Getting in and out of the car, rolling over in bed are painful, extended sitting to drive is painful Personal Factors Other Personal Factors That May Effect Reports stress incontinence, Therapy/Recovery PT-OP-C Subjective Start: 05/01/21 07:52 Freq: Status: Active Protocol: Document 08/15/21 08:57 NBM (Rec: 08/15/21 11:24 NBM [id number]) OP-PT Subjective Patient Comments Patient Comments Pt notices relief from stretching and massage but has not been doing HEP consistently. She will seek a massage therapist and try stretching in the morning when she wakes up. She has an appointment to check on the possible lipoma the third week of September. PT-OP-F Manual Assessment Start: 05/01/21 07:52 Freq: Status: Active Protocol: Document 05/09/21 09:45 AMB (Rec: 05/09/21 11:04 AMB [id number]) Manual Assessments Soft Tissue Assessment Soft Tissue Mobility Assessment No pain reproduced with palpation through hip flexor and gluteals, some tightness in gluteals Joint Mobility Assessment Joint Mobility Assessment No pain with unilateral or central PAs throughout lumbar spine, pain with hip IR with OP on the left and with lumbar sidebeninding to the L PT-OP-J Posture/Palpation/Skin Start: 05/01/21 07:52 Freq: Status: Active Protocol: Document 05/09/21 09:45 AMB (Rec: 05/09/21 11:04 AMB [id number]) Posture Evaluation Comments Posture Comments significant increased lumbar lordosis. In supine medial malleolus appeared inferior on the left and ASIS superior on the left Palpation Assessment Location Two Palpation Location SI joint Palpation Details apparent lipoma on L SI joint One Palpation Location abdomen Palpation Details diastasis recti - bulging out with lifting head up PT-OP-K Range of Motion Start: 05/01/21 07:52 Freq: Status: Active Protocol: Document 05/09/21 09:45 AMB (Rec: 05/09/21 11:04 AMB [id number]) Lumbar Spine Range of Motion Lumbar Spine Active Degrees Testing Position Standing Flexion 45 Extension 10 Lateral Flexion Left 10 Lateral Flexion Right 20 Comments Pain with L sidebending Hip Goniometric Range of Motion Hip Left Passive Testing Position Supine Internal Rotation 25 Comments 37 degrees without pain on the right, painful on the left- reproduced back pain PT-OP-L Special Tests Start: 05/01/21 07:52 Freq: Status: Active Protocol: Document 05/09/21 09:45 AMB (Rec: 05/09/21 11:04 AMB [id number]) Special Tests Hip Special Tests HIEU Test Results - PT-OP-M Strength Start: 05/01/21 07:52 Freq: Status: Active Protocol: Document 05/09/21 09:45 AMB (Rec: 05/09/21 11:04 AMB [id number]) Hip Strength Hip Manual Muscle Testing Left Flexion (L2) 5 Normal Extension (S1) 5 Normal Abduction 5 Normal Adduction 5 Normal External Rotation 5 Normal Internal Rotation 5 Normal PT-OP-T Assessment and Plan Start: 05/01/21 07:52 Freq: Status: Active Protocol: Document 09/26/21 14:29 AMB (Rec: 09/26/21 14:31 AMB [id number]) Physical Therapy Assessment Goals Two Impairment HEP Short Term Goal (STG) Suzy will be independent with a HEP for core stability. STG Duration MET One Impairment Transfers Short Term Goal (STG) Suzy will roll over in bed without back/hip pain. STG Duration 4 weeks Long-Term Goal (LTG) Suzy will move in and out of her car without hip/back pain. LTG Duration MET Assessment Summary Assessment Suzy was sick for her last two appointments, and her kids are now on summer break so she is unable to make it to PT. During physical therapy her pain decreased and she was able to better utilize her core, she was not seen for pelvic floor and could benefit from another bout of physical therapy in the future for that if she continues to have symptoms if she is able to make time for that. Physical Therapy Plan Discharge Physical Therapy Discharge Reasons No Longer Attending PT
== END 2021-09-30 14:41 ==
LOC: PHYS 09:00
PROVIDERS: Family Provider Family Medicine; PCP Family Medicine; Referring Provider Family Medicine; Visit Provider Family Medicine
DX: M25.551 Pain in right hip (principal); M25.552 Pain in left hip; M54.50 Low back pain, unspecified; G89.29 Other chronic pain
CPT/HCPCS: 97110; 97140; 97162

== ENCOUNTER → 2021-10-31 10:46 | Outpatient (CLI) | payer OTHER, SELFPAY ==
--- NOTE | 2021-10-31 | DI.MG.S_ITS ---
BILATERAL DIGITAL SCREENING MAMMOGRAM 3D/2D WITH CAD WITH AUGMENTATION: 10/31/2021 CLINICAL: Patient presents for routine screening. S/P bilateral augmentation. No prior exams were available for comparison. There are scattered areas of fibroglandular density in both breasts (category b / 25%-50% glandular tissue). Current study was also evaluated with a Computer Aided Detection (CAD) system. Right breast implant is intact. The left implant appears ruptured. No significant masses, calcifications, or other findings are seen in either breast. IMPRESSION: BENIGN Probable left implant rupture. There is no mammographic evidence of malignancy. A 1 year screening mammogram is recommended. Based on the Tyrer Cuzick model (a risk assessment model) the patient's lifetime risk is 8.9% and her 10 year risk is 1.1%. According to the ACR, ACS, and NCCN guidelines, an annual breast MRI exam along with mammogram is recommended if the patient's lifetime risk is 20% or greater. This exam was interpreted at Station ID: [id number]. NOTE: For mammograms, a report in lay terms will be sent to the patient. Approximately 15% of breast malignancies will not be visualized mammographically. In the management of a palpable breast mass, a negative mammogram must not discourage biopsy of a clinically suspicious lesion. Electronically Signed By: Sandra rizzo/:10/31/2021 13:06:13 letter sent: Normal Exam ACR BI-RADS Category 2: Benign Finding(s) 3342F
== END ==
PROVIDERS: Family Provider Family Medicine; PCP Family Medicine; Referring Provider Family Medicine; Visit Provider Family Medicine
DX: Z12.31 Encounter for screening mammogram for malignant neoplasm of breast (principal); Z98.82 Breast implant status
CPT/HCPCS: 77063; 77067

== ENCOUNTER → 2022-03-26 09:03 | Outpatient (CLI) | payer OTHER, SELFPAY | PROVIDERS: Family Provider Family Medicine; PCP Family Medicine; Visit Provider Nurse Practitioner Family | DX: R30.0 Dysuria (principal) | CPT/HCPCS: 87077; 87086; 87186 ==

== ENCOUNTER → 2022-10-13 13:50 | Outpatient (CLI) | payer OTHER, SELFPAY ==
[2022-10-13 14:21] LABS: Add Manual Diff / Slide Review NO; Basophils Absolute Auto 100 /uL (0-100); Basophils Percent Auto 0.9 % (0-2); Eosinophils Absolute Auto 200 /uL (0-450); Eosinophils Percent Auto 3.6 % (2-4); Hematocrit 41.1 % (36-46); Hemoglobin 13.7 g/dL (12.0-16.0); Lymphocytes Absolute Auto 1500 /uL (1100-4500); Lymphocytes Percent Auto 23.9 % (25-40); Mean Corpuscular HGB Conc 33.3 % (30-36); Mean Corpuscular Hemoglobin 28.7 PG (26-34); Monocytes Absolute Auto 600 /uL (0-900); Monocytes Percent Auto 8.8 % (3-14); Neutrophils Absolute Auto 4100 /uL (1500-7000); Neutrophils Percent Auto 62.8 % (50-75); Platelet Count 298 X10^3/uL (150-400); Red Blood Cell Count 4.78 X10^6/uL (4.0-5.2); Red Cell Distribution Width 13.5 % (11.6-14.8); White Blood Cell Count 6.4 X10^3/uL (4.5-11.0)
[2022-10-13 14:42] LABS: Alanine Aminotransferase 19 IU/L (<35); Albumin 4.3 g/dL (3.5-5.0); Albumin Globulin Ratio 1.2 (1.0-2.8); Alkaline Phosphatase 73 U/L (38-126); Aspartate Aminotransferase 25 IU/L (14-36); BUN Creatinine Ratio 25.6 (6-22); Bilirubin Total 0.6 mg/dL (0.2-1.3); Blood Urea Nitrogen 20 mg/dL (7-17); Calcium 8.8 mg/dL (8.4-10.2); Carbon Dioxide 27 mmol/L (22-32); Chloride 101 mmol/L (98-107); Cholesterol 246 mg/dL (140-199); Estimated Glomerular Filt Rate > 60 mL/min (>60); Globulin 3.6 g/dL (1.7-4.1); Glucose 89 mg/dL (70-100); HDL Cholesterol 80 mg/dL (40-60); HEMOLYSIS < 15 (0-50); LDL Cholesterol Calculated 154 mg/dL (<100); Sodium 135 mmol/L (137-145); Total Protein 7.9 g/dL (6.3-8.2); Triglycerides 59 mg/dL (35-150)
[2022-10-13 15:31] LABS: TSH w/ Reflex to FT4 2.31 uIU/mL (0.47-4.68)
[2022-10-13 16:25] LABS: Creatinine Urine Random 105.8 mg/dL
[2022-10-13 16:28] LABS: Microalbumin Urine Random < 0.6 mg/dL (0-1.6)
[2022-10-13 16:34] LABS: Follicle Stimulating Hormone 4.98 mIU/mL
[2022-10-16 14:41] LABS: Estrogen 112 pg/mL (.)
[2022-10-21 08:54] LABS: Percent Free Testosterone 2.06 % (0.50-2.80); Testosterone Free 0.33 ng/dL (0.10-0.85)
[2022-10-22 09:17] LABS: Free Progesterone <0.20 ng/dL (.); Progesterone, Serum <10 ng/dL (.)
== END ==
PROVIDERS: Family Provider Family Medicine; PCP Family Medicine; Referring Provider Family Medicine; Visit Provider Family Medicine
DX: F90.9 Attention-deficit hyperactivity disorder, unspecified type (principal); L68.0 Hirsutism; R53.83 Other fatigue; Z12.39 Encounter for other screening for malignant neoplasm of breast
CPT/HCPCS: 36415; 80053; 80061; 82043; 82570; 82672; 83001; 84144; 84402; 84403; 84443; 84999; 85025

== ENCOUNTER → 2022-11-27 13:49 | Outpatient (CLI) | payer OTHER, SELFPAY ==
--- NOTE | 2022-11-27 13:50 | DI.MG.S_ITS ---
BILATERAL DIGITAL SCREENING MAMMOGRAM 3D/2D WITH CAD: 11/27/2022 CLINICAL: Routine screening. Comparison is made to exam dated: 10/31/2021 mammogram - [facility]. There are scattered areas of fibroglandular density in both breasts (category b / 25%-50% glandular tissue). Current study was also evaluated with a Computer Aided Detection (CAD) system. There are benign post operative findings from removal of bilateral breast implants. No significant masses, calcifications, or other findings are seen in either breast. IMPRESSION: BENIGN There is no mammographic evidence of malignancy. A 1 year screening mammogram is recommended. Based on the Tyrer Cuzick model (a risk assessment model) the patient's lifetime risk is 8.9% and her 10 year risk is 1.2%. According to the ACR, ACS, and NCCN guidelines, an annual breast MRI exam along with mammogram is recommended if the patient's lifetime risk is 20% or greater. This exam was interpreted at Station ID: [id number]. NOTE: For mammograms, a report in lay terms will be sent to the patient. Approximately 15% of breast malignancies will not be visualized mammographically. In the management of a palpable breast mass, a negative mammogram must not discourage biopsy of a clinically suspicious lesion. Electronically Signed By: Arminda gonzalezb/:11/27/2022 17:21:04 letter sent: Normal Exam ACR BI-RADS Category 2: Benign Finding(s) 3342F
== END ==
PROVIDERS: Family Provider Family Medicine; PCP Family Medicine; Referring Provider Family Medicine; Visit Provider Family Medicine
DX: Z12.31 Encounter for screening mammogram for malignant neoplasm of breast (principal)
CPT/HCPCS: 77063; 77067

== ENCOUNTER 2023-04-13 13:00 | Outpatient (RCR) | payer OTHER, SELFPAY ==
--- NOTE | 2023-01-05 16:53 | PT.OPPOC ---
Physical, Occupational & Speech Therapy At [facility] Current Diagnoses Lordosis, unspecified, lumbosacral region (01/05/23) Mixed incontinence (01/05/23) Pelvic and perineal pain (01/05/23) Unspecified urinary incontinence (01/05/23) Visit Care Team Role Provider Type Celso Norton MD Attending Provider Physician Family Provider Primary Care Provider Referring Provider Specialty: Family Practice Address: [address] [place] [address], [facility] Email: [email or web address] Plan Of Care PT-OP-T Assessment and Plan Start: 11/18/22 08:13 Freq: Status: Active Protocol: Document 01/05/23 13:21 LRN (Rec: 01/05/23 18:25 LRN [id number]) Physical Therapy Assessment Rehab Potential Rehabilitation Potential Good Evaluation Complexity Number of Personal Factors/Comorbidities 1-2 Number of Body Systems Impaired 4 or More Clinical Presentation at Evaluation Evolving Impairments Impairments Activity Tolerance,Pain, Posture,ROM,Soft Tissue Mobility,Strength,Transfers Goals Four Impairment Pain with intercourse. Short Term Goal (STG) Pt educated in PF stretching techiques (ex, ?wand). STG Duration 2 wks-01/16/23 Security Management Specialist Goal (LTG) Eliminate pain with intercourse. LTG Duration 10 wks-03/16/23 Three Impairment Constipation Short Term Goal (STG) Pt educated in constipation care and coordination of breathing for BM's, transfers, vigorous activity (exercise) and light activities (walking, ADLs). STG Duration 3 wks-01/27/23 Group Home Goal (LTG) Decrease constipation with BM 1 every other day or daily. LTG Duration 10 wks-03/16/23 Two Impairment Urinary Leakage daily Impairment Leakage: few drops to wetting of underwear. Leakage with vigorous activity (ex) or light activity ( walking, light housework). Leakage with change in positions (sit to stand) Leakage with strong urge. Short Term Goal (STG) Pt educated in Urinary Delay technique with pt able to make to bathroom with a strong urge. STG Duration 2 wks-01/16/23 Group Home Goal (LTG) Improve PF strength with resolution of Urinary leakage. LTG Duration 10 wks-03/16/23 One Impairment Pt lacks appropriate self care HEP. Short Term Goal (STG) Education in vulvar/genital care. STG Duration 5 wks-02/06/23 Security Management Specialist Goal (LTG) Pt will be independent with a self care HEP of PF/core strengthening (rot R>L, & R SB ). LE strengthening (hip left ER, marco AB/AD, ankle IV), DR ( trunk rot -ROM/strength) and hip ROM (ext/rot). LTG Duration 10 wks-03/16/23 Assessment Summary Assessment Pt is a 42 yo female who presents with mixed urinary incontinence, primarily bothered by stress urinary incontinence ~1-2x/day. She appears to have a cystocele grade 2, constipation involvement, pain with intercourse and postural deviations. Posture demonstrates excessive anterior tilt of pelvis, Diastasis Rectus, valgus of knees, decr'd trunk R rot & SB , decreased hip ext, & rotation. She has decreased strength of trunk rotators and hip extensors and L hip ER. The pt will benefit from skilled physical therapy to work towards achieving the above stated goals. Physical Therapy Plan Frequency and Duration Frequency of Treatment 1x/Week Duration of treatment (weeks) 10 Plan of Care Start Date 01/05/23 Plan of Care End Date 03/16/23 Therapeutic Interventions Therapeutic Interventions Home Exercise Program,Joint Mobilizations,Manual Therapy, Neuromuscular Re-education, Self-Care/Home Management,Soft Tissue Mobilization,Taping, Therapeutic Activities, Therapeutic Exercises Modalities Cold Pack/Ice Massage,Electric Stimulation,Hot Packs Next Visit Focus/Plan Next Note Type Treatment Note Next Visit Plan Next: Assess bladder diary and bowel involvement and discuss fluid intake (AM/PM), bowel movement frequency, & nighttime voiding frequency. Vemg PF biofeedback/exercise. Next: Educate in PF stretching techiques if needed (ex, ?wand) and in Urinary Delay technique. Education: Vulvar/genital care, PF contractions in isolation of substitute muscles, coordination of proper breaths with ADLs, transfers, body mechanics and exercise. HEP: Hip ext ROM, trunk rot ROM and core strengthening ( rot R>L, & R SB). LE strengthening (hip AB, ER left >R, marco AB/AD, ankle IV) PF strengthening (anterior & posterior) in isolation of substitute muscles. Plan of Care Dates Plan of Care Start Date 01/05/23 Plan of Care End Date 03/16/23 Electronically Signed by: Sandra Munoz, PT 01/06/23 [id number] If you are in agreement with this Plan of Care, please return a signed and dated copy. I have reviewed this Plan of Care and certify that the skilled therapy services above are required to meet the patient?s needs. Physician Signature Date Printed Name and Credentials Clinical Instructor Signature Printed Name and Credentials
--- NOTE | 2023-01-05 16:53 | PT.OIE ---
Current Diagnoses Lordosis, unspecified, lumbosacral region (01/05/23) Mixed incontinence (01/05/23) Pelvic and perineal pain (01/05/23) Unspecified urinary incontinence (01/05/23) Past Medical History (Last Updated 09/26/21 @ 10:24 by Celso Norton MD) ADHD Bilateral hip pain Chronic low back pain Dermatitis Fatigue IBS (irritable bowel syndrome) Past Surgical History History of breast augmentation Visit Care Team Role Provider Type Celso Norton MD Attending Provider Physician Family Provider Primary Care Provider Referring Provider Specialty: Family Practice Address: [address] [place] [address] Email: [email or web address] Physical Therapy Initial Evaluation PT-OP-A Visit Information Start: 11/18/22 08:13 Freq: Status: Active Protocol: Document 01/05/23 13:21 LRN (Rec: 01/05/23 18:25 LRN [id number]) Out-Patient Physical Therapy Visit Information Visit Information Visit Type Initial Evaluation Visit Start Time 13:21 Visit Stop Time 14:06 Total Visit Minutes 45 Visit Number / Evaluation Information Evaluation Date 01/05/23 Precautions Precautions Hx of back pain. PT-OP-B Current Condition Start: 11/18/22 08:13 Freq: Status: Active Protocol: Document 01/05/23 13:21 LRN (Rec: 01/05/23 18:25 LRN [id number]) Current Condition History of Current Condition Onset Date 7 yrs ago. Current Complaints PF, core and a little issue of LBP (from standing) History of Current Condition Pt attends with c/o urinary incontinence since her last childbirth 7 yrs ago. Previously had PT for LBP and a lot was resolve. Her core, PF, and a little back issues are present. Prior Treatments and Tests No previous PF therapy. Developmental History Developmental History 4 , Parity 3, all vaginal births. A little tearing with childbirths. Fast deliveries. Childre ages 14, 11, 8. Treatment Goals Patient/Caregiver Goals Pt goals: Resolve Urinary leakage, Learn constipation care. Decrease pain with intercourse, HEP. 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 PT-OP-C Subjective Start: 11/18/22 08:13 Freq: Status: Active Protocol: Document 01/05/23 13:21 LRN (Rec: 01/05/23 18:25 LRN [id number]) Patient Questionnaires Pelvic Pain and Urgency/Frequency Patient Symptom Scale Pelvic Pain Score 4 PT-OP-I Pelvic Floor Start: 11/18/22 08:13 Freq: Status: Active Protocol: Document 01/05/23 13:21 LRN (Rec: 01/05/23 18:25 LRN [id number]) Pelvic Floor Assessment Urine Urinary Symptoms Urge Sensation,Hesitancy, Dribbling After Urination, Falling Out Feeling/Heavy Other Urinary Symptoms Daily urinary leakage. Sometimes just leaks, mayube from holding too long and with stress. Falling out feeling with menstrual cycle. Leakage Cause Cough,Exercise,Sneeze,Urge Other Leakage Causes Jumping, exercise. Amount of leakage depends on how full her bladder is. Leaks Per Day 1-2 Voiding Frequency 3 Nocturia 0 Pads Used In 24 Hours 1 Urine Pad Type Panty Liner Bowel Bowel Symptoms Constipation Other Bowel Symptoms Constipation since child. Everything feels tight. Bowel Movement Frequency Every 2-3 days [place] Stool Chart Comments Types 1-5 Prolapse Cystocele Grade 2 Perineal Descent Resting Absent Bearing Absent Contraction Ability Voluntary Contraction Weak Voluntary Relaxation Weak Manual Muscle Testing Left 2 Manual Muscle Testing Right 2 Manual Muscle Testing Anterior 0 Manual Muscle Testing Posterior 2 Muscle Endurance (Seconds) 1 Number of Quick Contractions In 10 5 Seconds Comments Pelvic Floor Comments No mvmt of PF with Kegel. Mild gapping of vaginal canal. PT-OP-J Posture/Palpation/Skin Start: 11/18/22 08:13 Freq: Status: Active Protocol: Document 01/05/23 13:21 LRN (Rec: 01/05/23 18:25 LRN [id number]) Posture Evaluation Position Standing Head/C-Spine Posture Forward Head Pelvis Posture Anteriorly Tilted Knee Posture (L) Genu Valgus,(R) Genu Valgus Comments Posture Comments Level Ileums, and level PSIS Palpation Assessment Location Abdomen-DR Palpation Location Abdomen fir DR Palpation Details Above Umbilicus: 3 1.5 fingerwidths (very shallow), 2 1.5 fingerwidths (shallow), 1 1.5 fingerwidths (mild). Below Umbilicus: 3 1 fingerwidth (V shallow),n @ 1 .5 fingerwidths (shallow), 1 1.5 fingerwidths (mild) PT-OP-K Range of Motion Start: 11/18/22 08:13 Freq: Status: Active Protocol: Document 01/05/23 13:21 LRN (Rec: 01/05/23 18:25 LRN [id number]) Lumbar Spine Range of Motion Lumbar Spine Active Degrees Testing Position Standing Flexion 110 Extension 15 Rotation Left 40 Rotation Right 35 Lateral Flexion Left 10 Lateral Flexion Right 5 Comments Trunk AROM: Flexion is 110 deg?s with 65 deg?s hip flexion, Trunk extension is 15 deg?s with 36 deg?s hip extension. Trunk SB L causes L QL pain Hip Goniometric Range of Motion Hip Right Passive Testing Position Supine Extension 5 Internal Rotation 30 External Rotation 65 Left Passive Testing Position Supine Extension 5 Internal Rotation 25 External Rotation 65 PT-OP-M Strength Start: 11/18/22 08:13 Freq: Status: Active Protocol: Document 01/05/23 13:21 LRN (Rec: 01/05/23 18:25 LRN [id number]) Trunk Strength Trunk Manual Muscle Testing Core Stabilization Loss of core stability in sidelie. Hip Strength Hip Manual Muscle Testing Right Flexion (L2) 3 Fair Left Extension (S1) 3 Fair External Rotation 3 Fair PT-OP-Q Treatments Start: 11/18/22 08:13 Freq: Status: Active Protocol: Document 01/05/23 13:21 LRN (Rec: 01/05/23 18:25 LRN [id number]) Self-Care/Home Management Treatment Education Other Education Discussed results of evaluation, goals, and plan of care (POC). Pt agreeable to goals and POC. Issued, discussed, & reviewed Bladder Diary for pt to complete over the next 7 days. Explained how to fill out diary and counting of urination times. Activities Self-Care/Home Management Activities Issued & reviewed HEP: Jeevan ex's and discussed exercise of Quick Flicks, Long Holds and Aggravators. PT-OP-T Assessment and Plan Start: 11/18/22 08:13 Freq: Status: Active Protocol: Document 01/05/23 13:21 LRN (Rec: 01/05/23 18:25 LRN [id number]) Physical Therapy Assessment Rehab Potential Rehabilitation Potential Good Evaluation Complexity Number of Personal Factors/Comorbidities 1-2 Number of Body Systems Impaired 4 or More Clinical Presentation at Evaluation Evolving Impairments Impairments Activity Tolerance,Pain, Posture,ROM,Soft Tissue Mobility,Strength,Transfers Goals Four Impairment Pain with intercourse. Short Term Goal (STG) Pt educated in PF stretching techiques (ex, ?wand). STG Duration 2 wks-01/16/23 Custodial Goal (LTG) Eliminate pain with intercourse. LTG Duration 10 wks-03/16/23 Three Impairment Constipation Short Term Goal (STG) Pt educated in constipation care and coordination of breathing for BM's, transfers, vigorous activity (exercise) and light activities (walking, ADLs). STG Duration 3 wks-01/27/23 Custodial Goal (LTG) Decrease constipation with BM 1 every other day or daily. LTG Duration 10 wks-03/16/23 Two Impairment Urinary Leakage daily Impairment Leakage: few drops to wetting of underwear. Leakage with vigorous activity (ex) or light activity ( walking, light housework). Leakage with change in positions (sit to stand) Leakage with strong urge. Short Term Goal (STG) Pt educated in Urinary Delay technique with pt able to make to bathroom with a strong urge. STG Duration 2 wks-01/16/23 C D Stripper Goal (LTG) Improve PF strength with resolution of Urinary leakage. LTG Duration 10 wks-03/16/23 One Impairment Pt lacks appropriate self care HEP. Short Term Goal (STG) Education in vulvar/genital care. STG Duration 5 wks-02/06/23 C D Stripper Goal (LTG) Pt will be independent with a self care HEP of PF/core strengthening (rot R>L, & R SB ). LE strengthening (hip left ER, marco AB/AD, ankle IV), DR ( trunk rot -ROM/strength) and hip ROM (ext/rot). LTG Duration 10 wks-03/16/23 Assessment Summary Assessment Pt is a 42 yo female who presents with mixed urinary incontinence, primarily bothered by stress urinary incontinence ~1-2x/day. She appears to have a cystocele grade 2, constipation involvement, pain with intercourse and postural deviations. Posture demonstrates excessive anterior tilt of pelvis, Diastasis Rectus, valgus of knees, decr'd trunk R rot & SB , decreased hip ext, & rotation. She has decreased strength of trunk rotators and hip extensors and L hip ER. The pt will benefit from skilled physical therapy to work towards achieving the above stated goals. Physical Therapy Plan Frequency and Duration Frequency of Treatment 1x/Week Duration of treatment (weeks) 10 Plan of Care Start Date 01/05/23 Plan of Care End Date 03/16/23 Therapeutic Interventions Therapeutic Interventions Home Exercise Program,Joint Mobilizations,Manual Therapy, Neuromuscular Re-education, Self-Care/Home Management,Soft Tissue Mobilization,Taping, Therapeutic Activities, Therapeutic Exercises Modalities Cold Pack/Ice Massage,Electric Stimulation,Hot Packs Next Visit Focus/Plan Next Note Type Treatment Note Next Visit Plan Next: Assess bladder diary and bowel involvement and discuss fluid intake (AM/PM), bowel movement frequency, & nighttime voiding frequency. Vemg PF biofeedback/exercise. Next: Educate in PF stretching techiques if needed (ex, ?wand) and in Urinary Delay technique. Education: Vulvar/genital care, PF contractions in isolation of substitute muscles, coordination of proper breaths with ADLs, transfers, body mechanics and exercise. HEP: Hip ext ROM, trunk rot ROM and core strengthening ( rot R>L, & R SB). LE strengthening (hip AB, ER left >R, marco AB/AD, ankle IV) PF strengthening (anterior & posterior) in isolation of substitute muscles.
--- NOTE | 2023-02-13 12:13 | PT.OTN ---
Addendum entered and electronically signed by Sandra Munoz, PT 03/03/23 14:57: Treatment: Self care: Pt educated in Urinary Delay technique w/HO issued. Treatment: Ther Ex: Resting tone of PF taken. Kegel Quick Contractions & Long Hold contractions with rest between contractions and between Quick and Long Holds. Extra time was taken for proper positioning of patient for ex and for vaginal electrode placement. Original Note: Addendum entered and electronically signed by Sandra Munoz, PT 02/13/23 12:16: Pt reported PAIN: PF sometimes with intercourse rated 5/10, constant LBP rated 5/10. Original Note: Current Diagnoses Lordosis, unspecified, lumbosacral region (02/13/23) Mixed incontinence (02/13/23) Pelvic and perineal pain (02/13/23) Unspecified urinary incontinence (02/13/23) Physical Therapy Treatment Note PT-OP-A Visit Information Start: 11/18/22 08:13 Freq: Status: Active Protocol: Document 02/13/23 11:21 LRN (Rec: 02/13/23 12:10 LRN [id number]) Out-Patient Physical Therapy Visit Information Visit Information Visit Type Treatment Note Visit Start Time 11:21 Visit Stop Time 11:59 Total Visit Minutes 38 Visit Number 04/21 Evaluation Information Evaluation Date 01/05/23 Precautions Precautions Hx of back pain. PT-OP-B Current Condition Start: 11/18/22 08:13 Freq: Status: Active Protocol: Document 01/05/23 13:21 LRN (Rec: 01/05/23 18:25 LRN [id number]) Current Condition History of Current Condition Onset Date 7 yrs ago. Current Complaints PF, core and a little issue of LBP (from standing) History of Current Condition Pt attends with c/o urinary incontinence since her last childbirth 7 yrs ago. Previously had PT for LBP and a lot was resolve. Her core, PF, and a little back issues are present. Prior Treatments and Tests No previous PF therapy. Developmental History Developmental History 4 , Parity 3, all vaginal births. A little tearing with childbirths. Fast deliveries. Childre ages 14, 11, 8. Treatment Goals Patient/Caregiver Goals Pt goals: Resolve Urinary leakage, Learn constipation care. Decrease pain with intercourse, HEP. 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 PT-OP-C Subjective Start: 11/18/22 08:13 Freq: Status: Active Protocol: Document 02/13/23 11:21 LRN (Rec: 02/13/23 12:10 LRN [id number]) OP-PT Subjective Patient Comments Patient Comments Has been travelling and is just now feeling healthy. Hasn't done the bladder log, has been focusing on the Kegels. Coughing last week was hard. Because she is short, she's not able to relax PF when on toilet. PT-OP-I Pelvic Floor Start: 11/18/22 08:13 Freq: Status: Active Protocol: Document 02/13/23 11:21 LRN (Rec: 02/13/23 12:10 LRN [id number]) Pelvic Floor Assessment SEMG (uV) Baseline 1.4 Quick Contraction 4.8 10 Second Contraction 2.9 Recruitment Pattern Good Relaxation Good Holding Poor/Slow Stability of Hold Poor/Slow SEMG Stability of Rest Poor/Slow Comments Pelvic Floor Comments Baseline position: Legs on bolster, arms over abdomen. Occasional PF spasms as high as 19.1uV's occur. Quick Flicks: 10 reps strength (uV's): avg work , avg rest . 20 reps strength (uV's): avg work 4.8, avg rest 1.7. Long Holds: 10 reps strength (uV's): avg work 1.9, avg rest 1.6. 20 reps strength (uV's): avg work 4.8, avg rest 2.7. PT-OP-J Posture/Palpation/Skin Start: 11/18/22 08:13 Freq: Status: Active Protocol: Document 01/05/23 13:21 LRN (Rec: 01/05/23 18:25 LRN [id number]) Posture Evaluation Position Standing Head/C-Spine Posture Forward Head Pelvis Posture Anteriorly Tilted Knee Posture (L) Genu Valgus,(R) Genu Valgus Comments Posture Comments Level Ileums, and level PSIS Palpation Assessment Location Abdomen-DR Palpation Location Abdomen fir DR Palpation Details Above Umbilicus: 3 1.5 fingerwidths (very shallow), 2 1.5 fingerwidths (shallow), 1 1.5 fingerwidths (mild). Below Umbilicus: 3 1 fingerwidth (V shallow),n @ 1 .5 fingerwidths (shallow), 1 1.5 fingerwidths (mild) PT-OP-K Range of Motion Start: 11/18/22 08:13 Freq: Status: Active Protocol: Document 01/05/23 13:21 LRN (Rec: 01/05/23 18:25 LRN [id number]) Lumbar Spine Range of Motion Lumbar Spine Active Degrees Testing Position Standing Flexion 110 Extension 15 Rotation Left 40 Rotation Right 35 Lateral Flexion Left 10 Lateral Flexion Right 5 Comments Trunk AROM: Flexion is 110 deg?s with 65 deg?s hip flexion, Trunk extension is 15 deg?s with 36 deg?s hip extension. Trunk SB L causes L QL pain Hip Goniometric Range of Motion Hip Right Passive Testing Position Supine Extension 5 Internal Rotation 30 External Rotation 65 Left Passive Testing Position Supine Extension 5 Internal Rotation 25 External Rotation 65 PT-OP-M Strength Start: 11/18/22 08:13 Freq: Status: Active Protocol: Document 01/05/23 13:21 LRN (Rec: 01/05/23 18:25 LRN [id number]) Trunk Strength Trunk Manual Muscle Testing Core Stabilization Loss of core stability in sidelie. Hip Strength Hip Manual Muscle Testing Right Flexion (L2) 3 Fair Left Extension (S1) 3 Fair External Rotation 3 Fair PT-OP-Q Treatments Start: 11/18/22 08:13 Freq: Status: Active Protocol: Document 01/05/23 13:21 LRN (Rec: 01/05/23 18:25 LRN [id number]) Self-Care/Home Management Treatment Education Other Education Discussed results of evaluation, goals, and plan of care (POC). Pt agreeable to goals and POC. Issued, discussed, & reviewed Bladder Diary for pt to complete over the next 7 days. Explained how to fill out diary and counting of urination times. Activities Self-Care/Home Management Activities Issued & reviewed HEP: Sigifredogel ex's and discussed exercise of Quick Flicks, Long Holds and Aggravators. PT-OP-T Assessment and Plan Start: 11/18/22 08:13 Freq: Status: Active Protocol: Document 02/13/23 11:21 LRN (Rec: 02/13/23 12:10 LRN [id number]) Physical Therapy Assessment Goals Four Impairment Pain with intercourse. Short Term Goal (STG) Pt educated in PF stretching techiques (ex, ?wand). STG Duration 2 wks-01/16/23 Snf Goal (LTG) Eliminate pain with intercourse. LTG Duration 10 wks-03/16/23 Three Impairment Constipation Short Term Goal (STG) Pt educated in constipation care and coordination of breathing for BM's, transfers, vigorous activity (exercise) and light activities (walking, ADLs). STG Duration 3 wks-01/27/23 Snf Goal (LTG) Decrease constipation with BM 1 every other day or daily. LTG Duration 10 wks-03/16/23 Two Impairment Urinary Leakage daily Impairment Leakage: few drops to wetting of underwear. Leakage with vigorous activity (ex) or light activity ( walking, light housework). Leakage with change in positions (sit to stand) Leakage with strong urge. Short Term Goal (STG) Pt educated in Urinary Delay technique with pt able to make to bathroom with a strong urge. 02/13/23: Educated pt in Urinary Delay technique w/HO issued. STG Duration 2 wks-01/16/23 progressed 02/13/23. Snf Goal (LTG) Improve PF strength with resolution of Urinary leakage. LTG Duration 10 wks-03/16/23 One Impairment Pt lacks appropriate self care HEP. Short Term Goal (STG) Education in vulvar/genital care. 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 LE strengthening (hip left ER, marco AB/AD, ankle IV), DR ( trunk rot -ROM/strength) and hip ROM (ext/rot). LTG Duration 10 wks-03/16/23 Assessment Summary Assessment Pt with mixed urinary incontinence, primarily bothered by ENZO ~1-2x/day, cystocele grade 2, constipation, intermittent pain with intercourse and constant LBP. She has been leaking with coughing since been sick. If coughs more than a couple of times in a row will leak. Per Vemg biofeedback pt has low resting tone with what appears to be ms spasms throughout. Weakness with Quick contractions that fatigues fairly quickly; Long holds that are poor in endurance and fatigues quickly. Physical Therapy Plan Frequency and Duration Frequency of Treatment 1x/Week Duration of treatment (weeks) 10 Plan of Care Start Date 01/05/23 Plan of Care End Date 03/16/23 Next Visit Focus/Plan Next Note Type Treatment Note Next Visit Plan Next: Assess bladder diary and bowel involvement and discuss fluid intake (AM/PM), bowel movement frequency, & nighttime voiding frequency; Review response to urinary delay technique (STG #2). Educate in PF stretching techiques if needed (ex, ?wand ) and hip AD's (HEP & manual) Vemg PF awareness training and biofeedback/ex. Education: PF contractions in isolation of substitute muscles, coordination of proper breaths with ADLs, transfers, body mechanics and exercise, Vulvar/genital care. HEP: Hip ext ROM, trunk rot ROM and core strengthening ( rot R>L, & R SB). LE strengthening (hip AB, ER left >R, marco AB/AD, ankle IV) PF strengthening (anterior & posterior) in isolation of substitute muscles.
--- NOTE | 2023-02-26 16:11 | PT-OP ANOTE ---
Pt called with message left reminding pt of tomorrow's appointment and due to cancelations if pt cancels appt, it would make it 2 in a row; therefore pt may be discharged from therapy per policy.
--- NOTE | 2023-03-03 15:27 | PT.OTN ---
Current Diagnoses Lordosis, unspecified, lumbosacral region (03/03/23) Mixed incontinence (03/03/23) Pelvic and perineal pain (03/03/23) Unspecified urinary incontinence (03/03/23) Physical Therapy Treatment Note PT-OP-A Visit Information Start: 11/18/22 08:13 Freq: Status: Active Protocol: Document 03/03/23 13:04 LRN (Rec: 03/03/23 15:27 LRN [id number]) Out-Patient Physical Therapy Visit Information Visit Information Visit Type Treatment Note Visit Start Time 13:04 Visit Stop Time 13:44 Total Visit Minutes 40 Visit Number 4 Evaluation Information Evaluation Date 01/05/23 Precautions Precautions Hx of back pain. PT-OP-B Current Condition Start: 11/18/22 08:13 Freq: Status: Active Protocol: Document 01/05/23 13:21 LRN (Rec: 01/05/23 18:25 LRN [id number]) Current Condition History of Current Condition Onset Date 7 yrs ago. Current Complaints PF, core and a little issue of LBP (from standing) History of Current Condition Pt attends with c/o urinary incontinence since her last childbirth 7 yrs ago. Previously had PT for LBP and a lot was resolve. Her core, PF, and a little back issues are present. Prior Treatments and Tests No previous PF therapy. Developmental History Developmental History 4 , Parity 3, all vaginal births. A little tearing with childbirths. Fast deliveries. Childre ages 14, 11, 8. Treatment Goals Patient/Caregiver Goals Pt goals: Resolve Urinary leakage, Learn constipation care. Decrease pain with intercourse, HEP. 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 PT-OP-C Subjective Start: 11/18/22 08:13 Freq: Status: Active Protocol: Document 03/03/23 13:04 LRN (Rec: 03/03/23 15:27 LRN [id number]) OP-PT Subjective Patient Comments Patient Comments States she hasn't done much in the past week because of the holidays and being on her period; therefore more constipated. States she has tried the urinary delay technique. During her cycle, she feels pressure and heavier and has less control of urine . Urine trickles enen w/o urge to go. PT-OP-I Pelvic Floor Start: 11/18/22 08:13 Freq: Status: Active Protocol: Document 02/13/23 11:21 LRN (Rec: 02/13/23 12:10 LRN [id number]) Pelvic Floor Assessment SEMG (uV) Baseline 1.4 Quick Contraction 4.8 10 Second Contraction 2.9 Recruitment Pattern Good Relaxation Good Holding Poor/Slow Stability of Hold Poor/Slow SEMG Stability of Rest Poor/Slow Comments Pelvic Floor Comments Baseline position: Legs on bolster, arms over abdomen. Occasional PF spasms as high as 19.1uV's occur. Quick Flicks: 10 reps strength (uV's): avg work , avg rest . 20 reps strength (uV's): avg work 4.8, avg rest 1.7. Long Holds: 10 reps strength (uV's): avg work 1.9, avg rest 1.6. 20 reps strength (uV's): avg work 4.8, avg rest 2.7. PT-OP-J Posture/Palpation/Skin Start: 11/18/22 08:13 Freq: Status: Active Protocol: Document 01/05/23 13:21 LRN (Rec: 01/05/23 18:25 LRN [id number]) Posture Evaluation Position Standing Head/C-Spine Posture Forward Head Pelvis Posture Anteriorly Tilted Knee Posture (L) Genu Valgus,(R) Genu Valgus Comments Posture Comments Level Ileums, and level PSIS Palpation Assessment Location Abdomen-DR Palpation Location Abdomen fir DR Palpation Details Above Umbilicus: 3 1.5 fingerwidths (very shallow), 2 1.5 fingerwidths (shallow), 1 1.5 fingerwidths (mild). Below Umbilicus: 3 1 fingerwidth (V shallow),n @ 1 .5 fingerwidths (shallow), 1 1.5 fingerwidths (mild) PT-OP-K Range of Motion Start: 11/18/22 08:13 Freq: Status: Active Protocol: Document 01/05/23 13:21 LRN (Rec: 01/05/23 18:25 LRN [id number]) Lumbar Spine Range of Motion Lumbar Spine Active Degrees Testing Position Standing Flexion 110 Extension 15 Rotation Left 40 Rotation Right 35 Lateral Flexion Left 10 Lateral Flexion Right 5 Comments Trunk AROM: Flexion is 110 deg?s with 65 deg?s hip flexion, Trunk extension is 15 deg?s with 36 deg?s hip extension. Trunk SB L causes L QL pain Hip Goniometric Range of Motion Hip Right Passive Testing Position Supine Extension 5 Internal Rotation 30 External Rotation 65 Left Passive Testing Position Supine Extension 5 Internal Rotation 25 External Rotation 65 PT-OP-M Strength Start: 11/18/22 08:13 Freq: Status: Active Protocol: Document 01/05/23 13:21 LRN (Rec: 01/05/23 18:25 LRN [id number]) Trunk Strength Trunk Manual Muscle Testing Core Stabilization Loss of core stability in sidelie. Hip Strength Hip Manual Muscle Testing Right Flexion (L2) 3 Fair Left Extension (S1) 3 Fair External Rotation 3 Fair PT-OP-Q Treatments Start: 11/18/22 08:13 Freq: Status: Active Protocol: Document 03/03/23 13:04 LRN (Rec: 03/03/23 15:27 LRN [id number]) Therapeutic Exercises Supine Exercises Bowel Massage Supine Exercise Name Bowel Massage and self bowel massage. Equipment Used handout for pt to follow massage pattern Reps/Minutes 6' Comments Pt needing training and education on pressure and patterning Deep Breathing Supine Exercise Name Deep Breathing training Reps/Minutes 3' Comments Cuing and self phys cuing at chest & abdomen Other Exercises Transfer w/coordination of Kegel/breaths Other Exercise Name Transfers (stand<>sit<>sup) with Kegel and breathwork Side bilateral Reps/Minutes 14' Self-Care/Home Management Treatment Education Other Education Pt educated and discussed ILU bowel massage and Bowel program. Educated and briefly discussed General Vulvar Care/Genital Hygiene, Pt educated and discussed proper Daily activities body mechanics to include coordination of Kegel and breathwork. Activities Self-Care/Home Management Activities Issued & reviewed handouts for : General Vulvar and Genital Hygiene care, Bowel program and ILU Bowel massage, Deep Breathing, Bed mobility and transfer sit<>stand with Kegel and proper breathwork. PT-OP-T Assessment and Plan Start: 11/18/22 08:13 Freq: Status: Active Protocol: Document 03/03/23 13:04 LRN (Rec: 03/03/23 15:27 LRN [id number]) Physical Therapy Assessment Goals Four Impairment Pain with intercourse. Short Term Goal (STG) Pt educated in PF stretching techiques (ex, ?wand). STG Duration 2 wks-01/16/23 Front Office Representative Goal (LTG) Eliminate pain with intercourse. 03/03/23: Sometimes painful; pain with intercourse when constipated. LTG Duration 10 wks-03/16/23 Three Impairment Constipation Short Term Goal (STG) Pt educated in constipation care and coordination of breathing for BM's, transfers, vigorous activity (exercise) and light activities (walking, ADLs). 03/03/23: Pt educated in constipation care, transfer, and ADL light activities. STG Duration 3 wks-01/27/23 progressed (need breath w/BM's, walk&vigorous ex) Front Office Representative Goal (LTG) Decrease constipation with BM 1 every other day or daily. LTG Duration 10 wks-03/16/23 Two Impairment Urinary Leakage daily Impairment Leakage: few drops to wetting of underwear. Leakage with vigorous activity (ex) or light activity ( walking, light housework). Leakage with change in positions (sit to stand) Leakage with strong urge. Short Term Goal (STG) Pt educated in Urinary Delay technique with pt able to make to bathroom with a strong urge. 02/13/23: Educated pt in Urinary Delay technique w/HO issued. STG Duration 2 wks-01/16/23 progressed 02/13/23. Assisted Goal (LTG) Improve PF strength with resolution of Urinary leakage. LTG Duration 10 wks-03/16/23 One Impairment Pt lacks appropriate self care HEP. Short Term Goal (STG) Education in vulvar/genital care. 03/03/23: Pt educated in vular/genital care. STG Duration 5 wks-02/06/23 (03/03/23: MET GOAL) Assisted Goal (LTG) Pt will be independent with a self care HEP of PF/core strengthening (rot R>L, & R SB ). LE strengthening (hip left ER, marco AB/AD, ankle IV), DR ( trunk rot -ROM/strength) and hip ROM (ext/rot). LTG Duration 10 wks-03/16/23 Assessment Summary Assessment Pt with mixed urinary incontinence, primarily bothered by stress urinary incontinence ~1-2x/day. She has cystocele grade 2, constipation, pain with intercourse and postural deviations (excessive anterior tilt of pelvis, valgus of knees, decr'd trunk R rot & SB , decreased hip ext, & rotation; decreased strength of trunk rotators and hip extensors and L hip ER. Lack of consistency with HEP due to the holidays; therefore no changes to report. Pt appears to have quick and good understanding of issued home ex's. Poor progression due to limited number of visits attended due to holidays. Physical Therapy Plan Frequency and Duration Frequency of Treatment 1x/Week Duration of treatment (weeks) 10 Plan of Care Start Date 01/05/23 Plan of Care End Date 03/16/23 Next Visit Focus/Plan Next Note Type Progress Note Next Visit Plan Next: Assess bladder diary and bowel involvement and discuss fluid intake (AM/PM), bowel movement frequency, & nighttime voiding frequency; Review response to urinary delay technique (STG #2). Educate in PF stretching techiques if needed (ex, ?wand ) and hip AD's (HEP & manual) Vemg PF awareness training and biofeedback/ex. Education: PF contractions in isolation of substitute muscles, coordination of proper breaths with exercise, breath w/BM's, walking, & vigorous ex. HEP: Hip ext ROM, trunk rot ROM and core strengthening ( rot R>L, & R SB). LE strengthening (hip AB, ER left >R, marco AB/AD, ankle IV) PF strengthening (anterior & posterior) in isolation of substitute muscles.
--- NOTE | 2023-03-12 09:11 | PT-OP ANOTE ---
Pt states she will be able to attend therapy consistently now that holidays are over, but will have 10 day periods she will not be able to due to unplanned trips by her job that she is required to do. She will be given 10 days notice by her work when she has to travel.
--- NOTE | 2023-03-12 10:33 | PT.OTN ---
Current Diagnoses Lordosis, unspecified, lumbosacral region (03/12/23) Mixed incontinence (03/12/23) Pelvic and perineal pain (03/12/23) Unspecified urinary incontinence (03/12/23) Physical Therapy Treatment Note PT-OP-A Visit Information Start: 11/18/22 08:13 Freq: Status: Active Protocol: Document 03/12/23 09:07 LRN (Rec: 03/12/23 10:30 LRN [id number]) Out-Patient Physical Therapy Visit Information Visit Information Visit Type Progress Note Visit Start Time 09:07 Visit Stop Time 09:55 Total Visit Minutes 50 Visit Number 06/19 Evaluation Information Evaluation Date 01/05/23 Precautions Precautions Hx of back pain. PT-OP-B Current Condition Start: 11/18/22 08:13 Freq: Status: Active Protocol: Document 01/05/23 13:21 LRN (Rec: 01/05/23 18:25 LRN [id number]) Current Condition History of Current Condition Onset Date 7 yrs ago. Current Complaints PF, core and a little issue of LBP (from standing) History of Current Condition Pt attends with c/o urinary incontinence since her last childbirth 7 yrs ago. Previously had PT for LBP and a lot was resolve. Her core, PF, and a little back issues are present. Prior Treatments and Tests No previous PF therapy. Developmental History Developmental History 4 , Parity 3, all vaginal births. A little tearing with childbirths. Fast deliveries. Childre ages 14, 11, 8. Treatment Goals Patient/Caregiver Goals Pt goals: Resolve Urinary leakage, Learn constipation care. Decrease pain with intercourse, HEP. 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 PT-OP-C Subjective Start: 11/18/22 08:13 Freq: Status: Active Protocol: Document 03/12/23 09:07 LRN (Rec: 03/12/23 10:30 LRN [id number]) OP-PT Subjective Patient Comments Patient Comments States she didn't bring her Vaginal electrode because it was removed from where she put it. States she has been doing coordinated breathing with transfers. Can't do Kegel with exhale. Has been doing BM massage and feels this week has been more regular and drinking more water. Still has back pain. States she doesn't feel she completes her BM. Feels always wet. Less leakage with urge. Feels heavy in pelvis when on her cycle. Patient Questionnaires Pelvic Pain and Urgency/Frequency Patient Symptom Scale Pelvic Pain Score 5 PT-OP-I Pelvic Floor Start: 11/18/22 08:13 Freq: Status: Active Protocol: Document 03/12/23 09:07 LRN (Rec: 03/12/23 10:30 LRN [id number]) Pelvic Floor Assessment Urine Urinary Symptoms Urge Sensation,Dribbling After Urination,Falling Out Feeling /Heavy Other Urinary Symptoms Not sure if daily urinary leakage, always daily mosture, sometimes discharge wet. Falling out feeling with menstrual cycle. Leakage Cause Cough,Exercise,Sneeze Other Leakage Causes Jumping, exercise. Amount of leakage depends on how full her bladder is. Leaks Per Day 1-2 Voiding Frequency 3-6 Nocturia 0 Pads Used In 24 Hours 1 Urine Pad Type Panty Liner Bowel Bowel Symptoms Constipation Bowel Movement Frequency Past week daily [place] Stool Chart Comments Types 1-4 Prolapse Prolapse Comments Slight Perineal mvmt with Kegel Perineal Descent Resting Absent Bearing Present Contraction Ability Manual Muscle Testing Left 2 Manual Muscle Testing Right 2 Manual Muscle Testing Anterior 2 Manual Muscle Testing Posterior 1 Muscle Endurance (Seconds) 4 Number of Quick Contractions In 10 5 Seconds Comments Pelvic Floor Comments Baseline position: Legs on bolster, arms over abdomen. No pain with palpation of PF. Posteriorly pt felt pressure and feeling of having to have a BM. PT-OP-J Posture/Palpation/Skin Start: 11/18/22 08:13 Freq: Status: Active Protocol: Document 01/05/23 13:21 LRN (Rec: 01/05/23 18:25 N [id number]) Posture Evaluation Position Standing Head/C-Spine Posture Forward Head Pelvis Posture Anteriorly Tilted Knee Posture (L) Genu Valgus,(R) Genu Valgus Comments Posture Comments Level Ileums, and level PSIS Palpation Assessment Location Abdomen-DR Palpation Location Abdomen fir DR Palpation Details Above Umbilicus: 3 1.5 fingerwidths (very shallow), 2 1.5 fingerwidths (shallow), 1 1.5 fingerwidths (mild). Below Umbilicus: 3 1 fingerwidth (V shallow),n @ 1 .5 fingerwidths (shallow), 1 1.5 fingerwidths (mild) PT-OP-K Range of Motion Start: 11/18/22 08:13 Freq: Status: Active Protocol: Document 01/05/23 13:21 LRN (Rec: 01/05/23 18:25 LRN [id number]) Lumbar Spine Range of Motion Lumbar Spine Active Degrees Testing Position Standing Flexion 110 Extension 15 Rotation Left 40 Rotation Right 35 Lateral Flexion Left 10 Lateral Flexion Right 5 Comments Trunk AROM: Flexion is 110 deg?s with 65 deg?s hip flexion, Trunk extension is 15 deg?s with 36 deg?s hip extension. Trunk SB L causes L QL pain Hip Goniometric Range of Motion Hip Right Passive Testing Position Supine Extension 5 Internal Rotation 30 External Rotation 65 Left Passive Testing Position Supine Extension 5 Internal Rotation 25 External Rotation 65 PT-OP-M Strength Start: 11/18/22 08:13 Freq: Status: Active Protocol: Document 01/05/23 13:21 LRN (Rec: 01/05/23 18:25 LRN [id number]) Trunk Strength Trunk Manual Muscle Testing Core Stabilization Loss of core stability in sidelie. Hip Strength Hip Manual Muscle Testing Right Flexion (L2) 3 Fair Left Extension (S1) 3 Fair External Rotation 3 Fair PT-OP-Q Treatments Start: 11/18/22 08:13 Freq: Status: Active Protocol: Document 03/12/23 09:07 LRN (Rec: 03/12/23 10:30 LRN [id number]) Therapeutic Exercises Supine Exercises PF Long Hold Contractions Supine Exercise Name PF Long Hold Contractions Reps/Minutes 10' Comments Assess PF strength PF Quick Contractions Supine Exercise Name PF Quick Contractions Reps/Minutes 8' Comments Assess PF strength Piriformis stretch Supine Exercise Name Piriformis stretch (knee to chest & single knee to opp shldr) Side left Reps/Minutes 3' Comments Phys cuing for proper stretch position. Kegel/Bridge Supine Exercise Name Kegel/Bridge Equipment Used 5' Reps/Minutes 10x 3 with 1' rest between sets. Deep Breathing Supine Exercise Name Deep Breathing training Reps/Minutes 2' Comments Cuing and self phys cuing at abdomen Manual Therapy Treatment Soft Tissue Mobilization Hip ADductors Body Location Angelito hip adductors Mobilization Type Myofascial Release,Strumming, Other Body Position Supine Comments DARRELL stretch Self-Care/Home Management Treatment Education Patient Education Home Exercise Program Activities Self-Care/Home Management Activities Issued & reviewed HEP: Hip ADD stretch (Longsit, standing , 1 leg on plinth, FROG stretch) & Kegel/Bridge. PT-OP-T Assessment and Plan Start: 11/18/22 08:13 Freq: Status: Active Protocol: Document 03/12/23 09:07 LRN (Rec: 03/12/23 10:30 LRN [id number]) Physical Therapy Assessment Rehab Potential Rehabilitation Potential Good Evaluation Complexity Number of Personal Factors/Comorbidities 1-2 Number of Body Systems Impaired 4 or More Clinical Presentation at Evaluation Evolving Impairments Impairments Activity Tolerance,Pain, Posture,ROM,Soft Tissue Mobility,Strength,Transfers Goals Four Impairment Pain with intercourse. Short Term Goal (STG) Pt educated in PF stretching techiques (ex, ?wand). STG Duration 3 wks-04/03/23 Gre Tutor Goal (LTG) Eliminate pain with intercourse. 03/03/23: Sometimes painful; pain with intercourse when constipated. LTG Duration 10 wks-05/15/23 Three Impairment Constipation Short Term Goal (STG) Pt educated in constipation care and coordination of breathing for BM's, transfers, vigorous activity (exercise) and light activities (walking, ADLs). 03/03/23: Pt educated in constipation care, transfer, and ADL light activities. STG Duration 3 wks-04/03/23 progressed (need breath w/BM's, walk&vigorous ex) Correction Goal (LTG) Decrease constipation with BM 1 every other day or daily. 03/12/23: BM daily for past week. LTG Duration 10 wks-05/15/23 progressed 03/12/23: goal met for 1 week Two Impairment Urinary Leakage daily Impairment Leakage: few drops to wetting of underwear. Leakage with vigorous activity (ex) or light activity ( walking, light housework). Leakage with change in positions (sit to stand) Leakage with strong urge. Short Term Goal (STG) Pt educated in Urinary Delay technique with pt able to make to bathroom with a strong urge. 02/13/23: Educated pt in Urinary Delay technique w/HO issued. STG Duration 2 wks-03/27/23 progressed 02/13/23. Correction Goal (LTG) Improve PF strength with resolution of Urinary leakage. LTG Duration 10 wks-05/15/23 One Impairment Pt lacks appropriate self care HEP. Short Term Goal (STG) Education in vulvar/genital care. 03/03/23: Pt educated in vular/genital care. STG Duration 5 wks-02/06/23 (03/03/23: MET GOAL) Correction Goal (LTG) Pt will be independent with a self care HEP of PF/core strengthening (rot R>L, & R SB ). LE strengthening (hip left ER, angelito AB/AD, ankle IV), DR ( trunk rot -ROM/strength) and hip ROM (ext/rot). 03/12/22: HEP: Hip AD stretch (V-sit, standing, 1 leg on plinth, FROG stretch; SKTC stretch, & Kegel/Bridge) LTG Duration 10 wks-05/15/23 progresssed 03/12/23 Assessment Summary Assessment Pt is a 42 yo female who has attended limited treatment visits (3) due to holiday schedules. She presents for mixed urinary incontinence, primarily bothered by stress urinary incontinence ~1-2x/day and pain with intercourse. She appears to have a grade 2 cystocele and rectocele, tightness of L hip causing muscle imbalance of the PF ( rectum is R of center), and postural deviations (excessive anterior tilt of pelvis, valgus of knees). She has PF weakness (strength 1-2/5) and decreased endurance (4 sec hold). Initially she showed decr'd trunk R rot & SB, decreased hip ext, & rotation; decreased strength of trunk rotators and hip extensors and L hip ER. The pt shows improvement in her ability to proper deep breath, and having daily bowel movements although bowel types range from 1-4. We will continue to work towards more consistent bowel types and will need to address her back pain that is hindering her PF strengthening ability. The pt will benefit from continued skilled physical therapy to work towards achieving the above stated goals now that the pt is able to be consistent with atttendance (except for when her work calls her away), and consistent with her HEP. Physical Therapy Plan Frequency and Duration Frequency of Treatment 1x/Week Duration of treatment (weeks) 10 Plan of Care Start Date 03/12/23 Plan of Care End Date 05/15/23 Therapeutic Interventions Therapeutic Interventions Home Exercise Program,Joint Mobilizations,Manual Therapy, Neuromuscular Re-education, Self-Care/Home Management,Soft Tissue Mobilization,Taping, Therapeutic Activities, Therapeutic Exercises Modalities Cold Pack/Ice Massage,Electric Stimulation,Hot Packs Next Visit Focus/Plan Next Note Type Treatment Note Next Visit Plan Next: Assess bladder diary and bowel involvement and discuss fluid intake (AM/PM), bowel movement frequency, & nighttime voiding frequency; Review response to urinary delay technique (STG #2). Educate in PF stretching techiques if needed (ex, ?wand ), Review hip AD's (HEP & cont manual STM/stretch). Vemg PF awareness training and biofeedback/ex. Education: PF contractions in isolation of substitute muscles, coordination of proper breaths with exercise, breath w/BM's, walking, & vigorous ex. HEP: Hip ext ROM, trunk rot ROM and core strengthening ( rot R>L, & R SB). LE strengthening (hip AB, ER left >R, angelito AB/AD, ankle IV) PF strengthening (anterior & posterior) in isolation of substitute muscles.
--- NOTE | 2023-03-19 17:28 | PT.OTN ---
Current Diagnoses Lordosis, unspecified, lumbosacral region (03/19/23) Mixed incontinence (03/19/23) Pelvic and perineal pain (03/19/23) Unspecified urinary incontinence (03/19/23) Physical Therapy Treatment Note PT-OP-A Visit Information Start: 11/18/22 08:13 Freq: Status: Active Protocol: Document 03/19/23 13:03 LRN (Rec: 03/19/23 13:52 LRN [id number]) Out-Patient Physical Therapy Visit Information Visit Information Visit Type Treatment Note Visit Start Time 13:03 Visit Stop Time 13:45 Total Visit Minutes 42 Visit Number 07/19 Evaluation Information Evaluation Date 01/05/23 Precautions Precautions Hx of back pain. PT-OP-B Current Condition Start: 11/18/22 08:13 Freq: Status: Active Protocol: Document 01/05/23 13:21 LRN (Rec: 01/05/23 18:25 LRN [id number]) Current Condition History of Current Condition Onset Date 7 yrs ago. Current Complaints PF, core and a little issue of LBP (from standing) History of Current Condition Pt attends with c/o urinary incontinence since her last childbirth 7 yrs ago. Previously had PT for LBP and a lot was resolve. Her core, PF, and a little back issues are present. Prior Treatments and Tests No previous PF therapy. Developmental History Developmental History 4 , Parity 3, all vaginal births. A little tearing with childbirths. Fast deliveries. Childre ages 14, 11, 8. Treatment Goals Patient/Caregiver Goals Pt goals: Resolve Urinary leakage, Learn constipation care. Decrease pain with intercourse, HEP. 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 PT-OP-C Subjective Start: 11/18/22 08:13 Freq: Status: Active Protocol: Document 03/19/23 13:03 LRN (Rec: 03/19/23 13:52 LRN [id number]) OP-PT Subjective Patient Comments Patient Comments Legs sore because started working out. Feels she can hold her PF contractions longer. States not leaking with an urge. If bladder is full or with cough, sneeze, or jump, will leak. PT-OP-I Pelvic Floor Start: 11/18/22 08:13 Freq: Status: Active Protocol: Document 03/19/23 13:03 LRN (Rec: 03/19/23 13:52 LRN [id number]) Pelvic Floor Assessment SEMG (uV) Baseline 2.4 Quick Contraction 4.5 10 Second Contraction 5.9 Recruitment Pattern Good Relaxation Good Holding Fair Stability of Hold Fair SEMG Stability of Rest Good Comments Pelvic Floor Comments Legs on bolster, hands at abdomen. After PF stretching: Baseline Resting tone is 3.4 mV's (initial was 1.4 uV's) Quick Contraction (10 reps) Avg max 6.7 uV's , Avg rest 6. 5 uV's. (Initially was 4.8uV' s) Initial 10 sec Contraction: 2 .9 uV's. PT-OP-J Posture/Palpation/Skin Start: 11/18/22 08:13 Freq: Status: Active Protocol: Document 01/05/23 13:21 LRN (Rec: 01/05/23 18:25 LRN [id number]) Posture Evaluation Position Standing Head/C-Spine Posture Forward Head Pelvis Posture Anteriorly Tilted Knee Posture (L) Genu Valgus,(R) Genu Valgus Comments Posture Comments Level Ileums, and level PSIS Palpation Assessment Location Abdomen-DR Palpation Location Abdomen fir DR Palpation Details Above Umbilicus: 3 1.5 fingerwidths (very shallow), 2 1.5 fingerwidths (shallow), 1 1.5 fingerwidths (mild). Below Umbilicus: 3 1 fingerwidth (V shallow),n @ 1 .5 fingerwidths (shallow), 1 1.5 fingerwidths (mild) PT-OP-K Range of Motion Start: 11/18/22 08:13 Freq: Status: Active Protocol: Document 01/05/23 13:21 LRN (Rec: 01/05/23 18:25 LRN [id number]) Lumbar Spine Range of Motion Lumbar Spine Active Degrees Testing Position Standing Flexion 110 Extension 15 Rotation Left 40 Rotation Right 35 Lateral Flexion Left 10 Lateral Flexion Right 5 Comments Trunk AROM: Flexion is 110 deg?s with 65 deg?s hip flexion, Trunk extension is 15 deg?s with 36 deg?s hip extension. Trunk SB L causes L QL pain Hip Goniometric Range of Motion Hip Right Passive Testing Position Supine Extension 5 Internal Rotation 30 External Rotation 65 Left Passive Testing Position Supine Extension 5 Internal Rotation 25 External Rotation 65 PT-OP-M Strength Start: 11/18/22 08:13 Freq: Status: Active Protocol: Document 01/05/23 13:21 LRN (Rec: 01/05/23 18:25 LRN [id number]) Trunk Strength Trunk Manual Muscle Testing Core Stabilization Loss of core stability in sidelie. Hip Strength Hip Manual Muscle Testing Right Flexion (L2) 3 Fair Left Extension (S1) 3 Fair External Rotation 3 Fair PT-OP-Q Treatments Start: 11/18/22 08:13 Freq: Status: Active Protocol: Document 03/19/23 13:03 LRN (Rec: 03/19/23 13:52 LRN [id number]) Therapeutic Exercises Supine Exercises PF Long Hold Contractions Supine Exercise Name PF Long Hold Contractions Reps/Minutes 10' Comments PF strength ex before and after stretching (see PF assessment) PF Quick Contractions Supine Exercise Name PF Quick Contractions Equipment Used Vemg Reps/Minutes 8' Comments PF strength ex before and after stretching (see PF assessment) Piriformis stretch Supine Exercise Name Piriformis stretch (knee to chest & single knee to opp shldr) Side left Reps/Minutes 3' Comments Cued to hold L for stretch and 2x Sitting Exercises V-sit hip AD stretch Sitting Exercise Name V-sit for hip AD stretch Reps/Minutes 2' Comments Cued to arch back and tighten TA SL hip AD stretch Sitting Exercise Name Leg on plinth Side bilateral Reps/Minutes 1' Comments No sign stretch noted Manual Therapy Treatment Soft Tissue Mobilization PF Body Location Superficial & Deep PF ms Mobilization Type Sustained Pressure Intensity/Depth Moderate Body Position Hooklying Self-Care/Home Management Treatment Education Patient Education Home Exercise Program Other Education Discussed and educated pt in specifics for completion of in use of Bladder Diary for urinary and bowel tracking, and I/S in tracking for 1 week . Discussed use of 2 different diaries for tracking of bladder for next 7 days. Educ pt on use of Small wand for PF stretching & Activities Self-Care/Home Management Activities HEP: Issued Small wand for PF stretching. PT-OP-T Assessment and Plan Start: 11/18/22 08:13 Freq: Status: Active Protocol: Document 03/19/23 13:03 LRN (Rec: 03/19/23 13:52 LRN [id number]) Physical Therapy Assessment Goals Four Impairment Pain with intercourse. Short Term Goal (STG) Pt educated in PF stretching techiques (ex, ?wand). STG Duration 3 wks-04/03/23 Membership Solicitor Goal (LTG) Eliminate pain with intercourse. 03/03/23: Sometimes painful; pain with intercourse when constipated. LTG Duration 10 wks-05/15/23 Three Impairment Constipation Short Term Goal (STG) Pt educated in constipation care and coordination of breathing for BM's, transfers, vigorous activity (exercise) and light activities (walking, ADLs). 03/03/23: Pt educated in constipation care, transfer, and ADL light activities. STG Duration 3 wks-04/03/23 progressed (need breath w/BM's, walk&vigorous ex) Membership Solicitor Goal (LTG) Decrease constipation with BM 1 every other day or daily. 03/12/23: BM daily for past week. LTG Duration 10 wks-05/15/23 progressed 03/12/23: goal met for 1 week Two Impairment Urinary Leakage daily Impairment Leakage: few drops to wetting of underwear. Leakage with vigorous activity (ex) or light activity ( walking, light housework). Leakage with change in positions (sit to stand) Leakage with strong urge. Short Term Goal (STG) Pt educated in Urinary Delay technique with pt able to make to bathroom with a strong urge. 02/13/23: Educated pt in Urinary Delay technique w/HO issued. 03/19/23: Pt reporting no urinary leakage with a strong urge. STG Duration 2 wks-03/27/23 (03/19/23: MET GOAL) Membership Solicitor Goal (LTG) Improve PF strength with resolution of Urinary leakage. LTG Duration 10 wks-05/15/23 One Impairment Pt lacks appropriate self care HEP. Short Term Goal (STG) Education in vulvar/genital care. 03/03/23: Pt educated in vular/genital care. STG Duration 5 wks-02/06/23 (03/03/23: MET GOAL) Membership Solicitor Goal (LTG) Pt will be independent with a self care HEP of PF/core strengthening (rot R>L, & R SB ). LE strengthening (hip left ER, marco AB/AD, ankle IV), DR ( trunk rot -ROM/strength) and hip ROM (ext/rot). 03/12/22: HEP: Hip AD stretch (V-sit, standing, 1 leg on plinth, FROG stretch; SKTC stretch, & Kegel/Bridge) LTG Duration 10 wks-05/15/23 progresssed 03/12/23 Assessment Summary Assessment Pt initially with mixed urinary incontinence, primarily bothered by stress urinary incontinence ~1-2x/day and pain with intercourse. She reports not having urinary leakage with an urge; therefore rehab needs to focus on stress urinary incontinence. She does not have bladder diary; therefore new handouts issued. Pt hip AD stretch only felt with V- Sit stretch, good mobility. Pt engages TA with PF contractions. Pt able to perform 3- 10SH PF contractions prior to decrease in contraction strength when cued to isolate from TA. Pt able to hold urine with strong urge, but reminded pt of urinary delay technique as she had forgotten what to do if needing to delay. Back pain limiting pt ability to do PF ex in supine. Physical Therapy Plan Frequency and Duration Frequency of Treatment 1x/Week Duration of treatment (weeks) 10 Plan of Care Start Date 03/12/23 Plan of Care End Date 05/15/23 Next Visit Focus/Plan Next Note Type Treatment Note Next Visit Plan Next: Assess bladder diary and bowel involvement and discuss fluid intake (AM/PM), bowel movement frequency, & nighttime voiding frequency. Review PF stretching techique. Assess need for hip AD's manual STM/stretch. Vemg PF awareness training and biofeedback/ex. for strengthening (if time permits PF long hold strength before and after stretching). Education: PF contractions in isolation of substitute muscles, coordination of proper breaths with exercise, breath w/BM's, walking, & vigorous ex. HEP: Hip ext ROM, trunk rot ROM and core strengthening ( rot R>L, & R SB). LE strengthening (hip AB, ER left >R, marco AB/AD, ankle IV) PF strengthening (anterior & posterior) in isolation of substitute muscles.
--- NOTE | 2023-03-24 14:15 | PT.OTN ---
Current Diagnoses Lordosis, unspecified, lumbosacral region (03/24/23) Mixed incontinence (03/24/23) Pelvic and perineal pain (03/24/23) Unspecified urinary incontinence (03/24/23) Physical Therapy Treatment Note PT-OP-A Visit Information Start: 11/18/22 08:13 Freq: Status: Active Protocol: Document 03/24/23 10:35 LRN (Rec: 03/24/23 11:22 LRN [id number]) Out-Patient Physical Therapy Visit Information Visit Information Visit Type Treatment Note Visit Start Time 10:35 Visit Stop Time 11:21 Total Visit Minutes 46 Visit Number 08/19 Evaluation Information Evaluation Date 01/05/23 Precautions Precautions Hx of back pain. PT-OP-B Current Condition Start: 11/18/22 08:13 Freq: Status: Active Protocol: Document 01/05/23 13:21 LRN (Rec: 01/05/23 18:25 LRN [id number]) Current Condition History of Current Condition Onset Date 7 yrs ago. Current Complaints PF, core and a little issue of LBP (from standing) History of Current Condition Pt attends with c/o urinary incontinence since her last childbirth 7 yrs ago. Previously had PT for LBP and a lot was resolve. Her core, PF, and a little back issues are present. Prior Treatments and Tests No previous PF therapy. Developmental History Developmental History 4 , Parity 3, all vaginal births. A little tearing with childbirths. Fast deliveries. Childre ages 14, 11, 8. Treatment Goals Patient/Caregiver Goals Pt goals: Resolve Urinary leakage, Learn constipation care. Decrease pain with intercourse, HEP. 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 PT-OP-C Subjective Start: 11/18/22 08:13 Freq: Status: Active Protocol: Document 03/24/23 10:35 LRN (Rec: 03/24/23 11:22 LRN [id number]) OP-PT Subjective Patient Comments Patient Comments Cycle is starting today. Urinary leakage only with sneezing, coughing, jumping. If with urgency is able to use delay techniqu to get to bathroom. Stools are mostly type 3 &4, BM's mostly daily. States she feels tight in LB>hip and still has pain with intercourse, thinks tightness is from LB> PT-OP-I Pelvic Floor Start: 11/18/22 08:13 Freq: Status: Active Protocol: Document 03/19/23 13:03 LRN (Rec: 03/19/23 13:52 LRN [id number]) Pelvic Floor Assessment SEMG (uV) Baseline 2.4 Quick Contraction 4.5 10 Second Contraction 5.9 Recruitment Pattern Good Relaxation Good Holding Fair Stability of Hold Fair SEMG Stability of Rest Good Comments Pelvic Floor Comments Legs on bolster, hands at abdomen. After PF stretching: Baseline Resting tone is 3.4 mV's (initial was 1.4 uV's) Quick Contraction (10 reps) Avg max 6.7 uV's , Avg rest 6. 5 uV's. (Initially was 4.8uV' s) Initial 10 sec Contraction: 2 .9 uV's. PT-OP-J Posture/Palpation/Skin Start: 11/18/22 08:13 Freq: Status: Active Protocol: Document 01/05/23 13:21 LRN (Rec: 01/05/23 18:25 LRN [id number]) Posture Evaluation Position Standing Head/C-Spine Posture Forward Head Pelvis Posture Anteriorly Tilted Knee Posture (L) Genu Valgus,(R) Genu Valgus Comments Posture Comments Level Ileums, and level PSIS Palpation Assessment Location Abdomen-DR Palpation Location Abdomen fir DR Palpation Details Above Umbilicus: 3 1.5 fingerwidths (very shallow), 2 1.5 fingerwidths (shallow), 1 1.5 fingerwidths (mild). Below Umbilicus: 3 1 fingerwidth (V shallow),n @ 1 .5 fingerwidths (shallow), 1 1.5 fingerwidths (mild) PT-OP-K Range of Motion Start: 11/18/22 08:13 Freq: Status: Active Protocol: Document 01/05/23 13:21 LRN (Rec: 01/05/23 18:25 LRN [id number]) Lumbar Spine Range of Motion Lumbar Spine Active Degrees Testing Position Standing Flexion 110 Extension 15 Rotation Left 40 Rotation Right 35 Lateral Flexion Left 10 Lateral Flexion Right 5 Comments Trunk AROM: Flexion is 110 deg?s with 65 deg?s hip flexion, Trunk extension is 15 deg?s with 36 deg?s hip extension. Trunk SB L causes L QL pain Hip Goniometric Range of Motion Hip Right Passive Testing Position Supine Extension 5 Internal Rotation 30 External Rotation 65 Left Passive Testing Position Supine Extension 5 Internal Rotation 25 External Rotation 65 PT-OP-M Strength Start: 11/18/22 08:13 Freq: Status: Active Protocol: Document 01/05/23 13:21 LRN (Rec: 01/05/23 18:25 LRN [id number]) Trunk Strength Trunk Manual Muscle Testing Core Stabilization Loss of core stability in sidelie. Hip Strength Hip Manual Muscle Testing Right Flexion (L2) 3 Fair Left Extension (S1) 3 Fair External Rotation 3 Fair PT-OP-Q Treatments Start: 11/18/22 08:13 Freq: Status: Active Protocol: Document 03/24/23 10:35 LRN (Rec: 03/24/23 11:22 LRN [id number]) Therapeutic Exercises Supine Exercises Happy Baby Pose Supine Exercise Name Happy Baby pose. Reps/Minutes 2' Piriformis stretch Supine Exercise Name Piriformis stretch (knee to chest & single knee to opp shldr) Side left Reps/Minutes 3' Comments Cued to hold L for stretch and 2x Sitting Exercises V-sit hip AD stretch Sitting Exercise Name V-sit for hip AD stretch Reps/Minutes 2' Comments Cued to arch back and tighten TA SL hip AD stretch Sitting Exercise Name Leg on plinth Side bilateral Reps/Minutes 1' Comments No sign stretch noted Manual Therapy Treatment Soft Tissue Mobilization Hip ADductors Body Location Hip AD's Mobilization Type Strumming,Sustained Pressure Intensity/Depth Moderate Body Position Supine Comments R side tighter than L side. Self-Care/Home Management Treatment Education Patient Education Home Exercise Program Other Education Educated and discussed use of walking ex to increase blood flow to PF to reduce pain with intercourse and for bowel function. Reviewed bladder diary filled in single sheet 7 day diary. Discussed frequency of urination is every 3-5 hrs, and BM's daily are appropriate type (3,4), fluid intake (AM/ PM) is probably appropriated due to good BM frequency and bowel types. No nighttime voiding appears at bedtime, although once appeared to wake at midnight to void. Activities Self-Care/Home Management Activities Instructed and reviewed HEP: Happy Baby Pose, Hip AD stretch (FROG, Single leg on plinth, V-sitting, and standing 1 leg on chair, and SKTC). PT-OP-T Assessment and Plan Start: 11/18/22 08:13 Freq: Status: Active Protocol: Document 03/24/23 10:35 LRN (Rec: 03/24/23 11:22 LRN [id number]) Physical Therapy Assessment Goals Four Impairment Pain with intercourse. Short Term Goal (STG) Pt educated in PF stretching techiques (ex, ?wand). 03/19/23: Pt issued wand for self stretching w/instructions given. 03/24/23: Reviewed PF stretching technique with pt. Not able to demonstrate due to pt on period. STG Duration 3 wks-04/03/23 progressed Senior Living Goal (LTG) Eliminate pain with intercourse. 03/03/23: Sometimes painful; pain with intercourse when constipated. LTG Duration 10 wks-05/15/23 Three Impairment Constipation Short Term Goal (STG) Pt educated in constipation care and coordination of breathing for BM's, transfers, vigorous activity (exercise) and light activities (walking, ADLs). 03/03/23: Pt educated in constipation care, transfer, and ADL light activities. 03/24/23: Discussed use of ex to improve blood flow to help to decrease PF pain and improve bowel function. STG Duration 3 wks-04/03/23 (03/24/23: MET GOAL) Supervisor Roving Goal (LTG) Decrease constipation with BM 1 every other day or daily. 03/12/23: BM daily for past week. 03/24/23: BM's daily. LTG Duration 10 wks-05/15/23 (03/24/23: MET GOAL) Two Impairment Urinary Leakage daily Impairment Leakage: few drops to wetting of underwear. Leakage with vigorous activity (ex) or light activity ( walking, light housework). Leakage with change in positions (sit to stand) Leakage with strong urge. Short Term Goal (STG) Pt educated in Urinary Delay technique with pt able to make to bathroom with a strong urge. 02/13/23: Educated pt in Urinary Delay technique w/HO issued. 03/19/23: Pt reporting no urinary leakage with a strong urge. STG Duration 2 wks-03/27/23 (03/19/23: MET GOAL) Supervisor Roving Goal (LTG) Improve PF strength with resolution of Urinary leakage. 03/24/23: Leakage only with coughing or sneezing, but feels it is getting better and not leaking as much when it happens. LTG Duration 10 wks-05/15/23 progressed 03/24/23. One Impairment Pt lacks appropriate self care HEP. Short Term Goal (STG) Education in vulvar/genital care. 03/03/23: Pt educated in vular/genital care. STG Duration 5 wks-02/06/23 (03/03/23: MET GOAL) Supervisor Roving Goal (LTG) Pt will be independent with a self care HEP of PF/core strengthening (rot R>L, & R SB ). LE strengthening (hip left ER, marco AB/AD, ankle IV), DR ( trunk rot -ROM/strength) and hip ROM (ext/rot). 03/12/22: HEP: Hip AD stretch (V-sit, standing, 1 leg on plinth, FROG stretch; SKTC stretch, & Kegel/Bridge). 03/24/23: HEP: Happy Baby Pose, hip stretches: SKTC, FROG stretch, hip AD stretch 1 ) SL on plinth in sitting, 2) SL on chair in standing, 3)V- sit. LTG Duration 10 wks-05/15/23 progresssed 03/24/23 Assessment Summary Assessment Per bladder diary review, pt is urinating as appropriate frequency (secs of void unknown) and BM's appear regular (daily) and appropriate types 3, 4. Urgency urinary leakage manageable/resolved. Pt able to control leakage with urge deference technique. Bowels are daily and normal with type 3-4. Pt tight in PF that is accentuated by LBP and hip tightness. Physical Therapy Plan Frequency and Duration Frequency of Treatment 1x/Week Duration of treatment (weeks) 10 Plan of Care Start Date 03/12/23 Plan of Care End Date 05/15/23 Next Visit Focus/Plan Next Note Type Treatment Note Next Visit Plan (Note: No EStim) Next: Review PF stretching techique. Assess need for hip AD's manual STM/stretch. Vemg PF awareness training and biofeedback/ex. for strengthening (if time permits PF long hold strength before and after stretching). Education: PF contractions in isolation of substitute muscles, coordination of proper breaths with exercise, breath w/BM's, walking, & vigorous ex. HEP: Hip ext ROM, trunk rot ROM and core strengthening ( rot R>L, & R SB). LE strengthening (hip AB, ER left >R, marco AB/AD, ankle IV) PF strengthening (anterior & posterior) in isolation of substitute muscles.
--- NOTE | 2023-04-03 15:42 | PT.OTN ---
Current Diagnoses Lordosis, unspecified, lumbosacral region (04/03/23) Mixed incontinence (04/03/23) Pelvic and perineal pain (04/03/23) Unspecified urinary incontinence (04/03/23) Physical Therapy Treatment Note PT-OP-A Visit Information Start: 11/18/22 08:13 Freq: Status: Active Protocol: Document 04/03/23 14:42 LRN (Rec: 04/03/23 15:40 LRN [id number]) Out-Patient Physical Therapy Visit Information Visit Information Visit Type Treatment Note Visit Start Time 14:42 Visit Stop Time 15:23 Visit Number 09/18 Evaluation Information Evaluation Date 01/05/23 Precautions Precautions Hx of back pain. PT-OP-B Current Condition Start: 11/18/22 08:13 Freq: Status: Active Protocol: Document 01/05/23 13:21 LRN (Rec: 01/05/23 18:25 LRN [id number]) Current Condition History of Current Condition Onset Date 7 yrs ago. Current Complaints PF, core and a little issue of LBP (from standing) History of Current Condition Pt attends with c/o urinary incontinence since her last childbirth 7 yrs ago. Previously had PT for LBP and a lot was resolve. Her core, PF, and a little back issues are present. Prior Treatments and Tests No previous PF therapy. Developmental History Developmental History 4 , Parity 3, all vaginal births. A little tearing with childbirths. Fast deliveries. Childre ages 14, 11, 8. Treatment Goals Patient/Caregiver Goals Pt goals: Resolve Urinary leakage, Learn constipation care. Decrease pain with intercourse, HEP. 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 PT-OP-C Subjective Start: 11/18/22 08:13 Freq: Status: Active Protocol: Document 04/03/23 14:42 LRN (Rec: 04/03/23 15:40 LRN [id number]) OP-PT Subjective Patient Comments Patient Comments No tenderness internally with PF stretching. Sick and coughing a lot and no leakage until having a cough attack. Now if tightens before coughing, has no leakage. Having more back pain with driving more and less HIIT training exercise and lifting. PT-OP-I Pelvic Floor Start: 09/12/23 08:13 Freq: Status: Active Protocol: Document 03/19/23 13:03 LRN (Rec: 03/19/23 13:52 LRN [id number]) Pelvic Floor Assessment SEMG (uV) Baseline 2.4 Quick Contraction 4.5 10 Second Contraction 5.9 Recruitment Pattern Good Relaxation Good Holding Fair Stability of Hold Fair SEMG Stability of Rest Good Comments Pelvic Floor Comments Legs on bolster, hands at abdomen. After PF stretching: Baseline Resting tone is 3.4 mV's (initial was 1.4 uV's) Quick Contraction (10 reps) Avg max 6.7 uV's , Avg rest 6. 5 uV's. (Initially was 4.8uV' s) Initial 10 sec Contraction: 2 .9 uV's. PT-OP-J Posture/Palpation/Skin Start: 11/18/22 08:13 Freq: Status: Active Protocol: Document 01/05/23 13:21 LRN (Rec: 01/05/23 18:25 LRN [id number]) Posture Evaluation Position Standing Head/C-Spine Posture Forward Head Pelvis Posture Anteriorly Tilted Knee Posture (L) Genu Valgus,(R) Genu Valgus Comments Posture Comments Level Ileums, and level PSIS Palpation Assessment Location Abdomen-DR Palpation Location Abdomen fir DR Palpation Details Above Umbilicus: 3 1.5 fingerwidths (very shallow), 2 1.5 fingerwidths (shallow), 1 1.5 fingerwidths (mild). Below Umbilicus: 3 1 fingerwidth (V shallow),n @ 1 .5 fingerwidths (shallow), 1 1.5 fingerwidths (mild) PT-OP-K Range of Motion Start: 11/18/22 08:13 Freq: Status: Active Protocol: Document 01/05/23 13:21 LRN (Rec: 01/05/23 18:25 LRN [id number]) Lumbar Spine Range of Motion Lumbar Spine Active Degrees Testing Position Standing Flexion 110 Extension 15 Rotation Left 40 Rotation Right 35 Lateral Flexion Left 10 Lateral Flexion Right 5 Comments Trunk AROM: Flexion is 110 deg?s with 65 deg?s hip flexion, Trunk extension is 15 deg?s with 36 deg?s hip extension. Trunk SB L causes L QL pain Hip Goniometric Range of Motion Hip Right Passive Testing Position Supine Extension 5 Internal Rotation 30 External Rotation 65 Left Passive Testing Position Supine Extension 5 Internal Rotation 25 External Rotation 65 PT-OP-M Strength Start: 11/18/22 08:13 Freq: Status: Active Protocol: Document 01/05/23 13:21 LRN (Rec: 01/05/23 18:25 LRN [id number]) Trunk Strength Trunk Manual Muscle Testing Core Stabilization Loss of core stability in sidelie. Hip Strength Hip Manual Muscle Testing Right Flexion (L2) 3 Fair Left Extension (S1) 3 Fair External Rotation 3 Fair PT-OP-Q Treatments Start: 11/18/22 08:13 Freq: Status: Active Protocol: Document 04/03/23 14:42 LRN (Rec: 04/03/23 15:40 LRN [id number]) Therapeutic Exercises Supine Exercises Happy Baby Pose Supine Exercise Name Happy Baby pose. Reps/Minutes 1' PF Long Hold Contractions Supine Exercise Name PF Long Hold Contractions Equipment Used Wedge/Ball/Band Reps/Minutes 10' for 10 SH (3 breath hold) with focus on relaxation phase . Comments Extra time taken to set up Vemg for PF strengthening, ended with biofeedbk Piriformis stretch Supine Exercise Name Piriformis stretch (knee to chest & single knee to opp shldr) Side left Reps/Minutes 3' Comments Cued to hold L for stretch and 2x Sitting Exercises SL hip AD stretch Sitting Exercise Name Leg on plinth, hip AD stretch Side bilateral Reps/Minutes 4' Comments No sign stretch noted Other Exercises Transfer w/coordination of Kegel/breaths Other Exercise Name Transfers (stand<>sit<>sup) with Kegel and breathwork Reps/Minutes 1' Comments Quick review, pt performing breath with mvmts. Manual Therapy Treatment Soft Tissue Mobilization Hip ADductors Body Location Hip AD's Mobilization Type Myofascial Release,Strumming, Sustained Pressure Intensity/Depth Moderate Body Position Supine Comments R side tighter than L side. PT-OP-T Assessment and Plan Start: 11/18/22 08:13 Freq: Status: Active Protocol: Document 04/03/23 14:42 LRN (Rec: 04/03/23 15:40 LRN [id number]) Physical Therapy Assessment Goals Four Impairment Pain with intercourse. Short Term Goal (STG) Pt educated in PF stretching techiques (ex, ?wand). 03/19/23: Pt issued wand for self stretching w/instructions given. 03/24/23: Reviewed PF stretching technique with pt. Not able to demonstrate due to pt on period. 04/03/23: Reviewed Happy Baby Pose and hip AD stretch. Pt did not feel it was necessary to review PF stretching with wand. STG Duration 3 wks-04/03/23 (04/03/23: MET GOAL) Director Of Dietary Goal (LTG) Eliminate pain with intercourse. 03/03/23: Sometimes painful; pain with intercourse when constipated. 04/03/23: Pain with intercourse only if having constipation and back pain. LTG Duration 10 wks-05/15/23 progressed Three Impairment Constipation Short Term Goal (STG) Pt educated in constipation care and coordination of breathing for BM's, transfers, vigorous activity (exercise) and light activities (walking, ADLs). 03/03/23: Pt educated in constipation care, transfer, and ADL light activities. 03/24/23: Discussed use of ex to improve blood flow to help to decrease PF pain and improve bowel function. STG Duration 3 wks-04/03/23 (03/24/23: MET GOAL) Director Of Dietary Goal (LTG) Decrease constipation with BM 1 every other day or daily. 03/12/23: BM daily for past week. 03/24/23: BM's daily. LTG Duration 10 wks-05/15/23 (03/24/23: MET GOAL) Two Impairment Urinary Leakage daily Impairment Leakage: few drops to wetting of underwear. Leakage with vigorous activity (ex) or light activity ( walking, light housework). Leakage with change in positions (sit to stand) Leakage with strong urge. Short Term Goal (STG) Pt educated in Urinary Delay technique with pt able to make to bathroom with a strong urge. 02/13/23: Educated pt in Urinary Delay technique w/HO issued. 03/19/23: Pt reporting no urinary leakage with a strong urge. STG Duration 2 wks-03/27/23 (03/19/23: MET GOAL) Retirement Goal (LTG) Improve PF strength with resolution of Urinary leakage. 03/24/23: Leakage only with coughing or sneezing, but feels it is getting better and not leaking as much when it happens. 04/03/23: Leakage with coughing fit or if not tightening before coughing. LTG Duration 10 wks-05/15/23 progressed 04/06/23. One Impairment Pt lacks appropriate self care HEP. Short Term Goal (STG) Education in vulvar/genital care. 03/03/23: Pt educated in vular/genital care. STG Duration 5 wks-02/06/23 (03/03/23: MET GOAL) Director Of Dietary Goal (LTG) Pt will be independent with a self care HEP of PF/core strengthening (rot R>L, & R SB ). LE strengthening (hip left ER, angelito AB/AD, ankle IV), DR ( trunk rot -ROM/strength) and hip ROM (ext/rot). 03/12/22: HEP: Hip AD stretch (V-sit, standing, 1 leg on plinth, FROG stretch; SKTC stretch, & Kegel/Bridge). 03/24/23: HEP: Happy Baby Pose, hip stretches: SKTC, FROG stretch, hip AD stretch 1 ) SL on plinth in sitting, 2) SL on chair in standing, 3)V- sit. LTG Duration 10 wks-05/15/23 progresssed 03/24/23 Assessment Summary Assessment Pt initially with mixed urinary incontinence, primarily bothered by stress urinary incontinence ~1-2x/day and pain with intercourse. Pt primarily with urinary leakage with strong cough or after repetative coughing. She has tightness in R hip AD' s because she has been stretching out the L hip AD's at home. Pt to now do Angelito hip AD stretch at home. Pt does not appear to have any difficulty with home PF stretches. Not able to do Vemg PF strength training due to computer issues; therefore strengthening with EMg in vagina and was able to get electrode drawing up and in with contractions. LBP is a hinderance in PF relaxation; therefore sacral balancing may be helpful to decreased LBP. Physical Therapy Plan Frequency and Duration Frequency of Treatment 1x/Week Duration of treatment (weeks) 10 Plan of Care Start Date 03/12/23 Plan of Care End Date 05/15/23 Next Visit Focus/Plan Next Note Type Treatment Note Next Visit Plan (Note: NO EStim) Next: Sacral balancing to reduce low back pain, then progress PF relaxation after contractions. Education: PF strengthening ( anterior & posterior) in isolation of substitute muscles, coordination of proper breaths with exercise, breath w/BM's. Vemg PF awareness training and biofeedback/ex for PF strengthening (if time permits PF long hold strength before and after stretching), walking , & vigorous ex. HEP: Hip ext ROM, trunk rot ROM and core strengthening ( rot R>L, & R SB). LE strengthening (hip AB, ER left >R, angelito AB/AD, ankle IV).
--- NOTE | 2023-04-13 15:47 | PT.OTN ---
Current Diagnoses Lordosis, unspecified, lumbosacral region (04/13/23) Mixed incontinence (04/13/23) Pelvic and perineal pain (04/13/23) Unspecified urinary incontinence (04/13/23) Physical Therapy Treatment Note PT-OP-A Visit Information Start: 11/18/22 08:13 Freq: Status: Active Protocol: Document 04/13/23 13:02 LRN (Rec: 04/13/23 13:52 LRN [id number]) Out-Patient Physical Therapy Visit Information Visit Information Visit Type Treatment Note Visit Start Time 13:02 Visit Stop Time 13:43 Visit Number 10/19 Evaluation Information Evaluation Date 01/05/23 Precautions Precautions Hx of back pain. PT-OP-B Current Condition Start: 11/18/22 08:13 Freq: Status: Active Protocol: Document 01/05/23 13:21 LRN (Rec: 01/05/23 18:25 LRN [id number]) Current Condition History of Current Condition Onset Date 7 yrs ago. Current Complaints PF, core and a little issue of LBP (from standing) History of Current Condition Pt attends with c/o urinary incontinence since her last childbirth 7 yrs ago. Previously had PT for LBP and a lot was resolve. Her core, PF, and a little back issues are present. Prior Treatments and Tests No previous PF therapy. Developmental History Developmental History 4 , Parity 3, all vaginal births. A little tearing with childbirths. Fast deliveries. Childre ages 14, 11, 8. Treatment Goals Patient/Caregiver Goals Pt goals: Resolve Urinary leakage, Learn constipation care. Decrease pain with intercourse, HEP. 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 PT-OP-C Subjective Start: 11/18/22 08:13 Freq: Status: Active Protocol: Document 04/13/23 13:02 LRN (Rec: 04/13/23 13:52 LRN [id number]) OP-PT Subjective Patient Comments Patient Comments Only urinary leaking is with coughing and bearing down from constipation. Has noticed she is not as tight in PF unless having LBP or constipation. No c/o hip pain . No LBP today. Patient Questionnaires Pelvic Pain and Urgency/Frequency Patient Symptom Scale Pelvic Pain Score 1 PT-OP-I Pelvic Floor Start: 11/18/22 08:13 Freq: Status: Active Protocol: Document 03/19/23 13:03 LRN (Rec: 03/19/23 13:52 LRN [id number]) Pelvic Floor Assessment SEMG (uV) Baseline 2.4 Quick Contraction 4.5 10 Second Contraction 5.9 Recruitment Pattern Good Relaxation Good Holding Fair Stability of Hold Fair SEMG Stability of Rest Good Comments Pelvic Floor Comments Legs on bolster, hands at abdomen. After PF stretching: Baseline Resting tone is 3.4 mV's (initial was 1.4 uV's) Quick Contraction (10 reps) Avg max 6.7 uV's , Avg rest 6. 5 uV's. (Initially was 4.8uV' s) Initial 10 sec Contraction: 2 .9 uV's. PT-OP-J Posture/Palpation/Skin Start: 11/18/22 08:13 Freq: Status: Active Protocol: Document 01/05/23 13:21 LRN (Rec: 01/05/23 18:25 LRN [id number]) Posture Evaluation Position Standing Head/C-Spine Posture Forward Head Pelvis Posture Anteriorly Tilted Knee Posture (L) Genu Valgus,(R) Genu Valgus Comments Posture Comments Level Ileums, and level PSIS Palpation Assessment Location Abdomen-DR Palpation Location Abdomen fir DR Palpation Details Above Umbilicus: 3 1.5 fingerwidths (very shallow), 2 1.5 fingerwidths (shallow), 1 1.5 fingerwidths (mild). Below Umbilicus: 3 1 fingerwidth (V shallow),n @ 1 .5 fingerwidths (shallow), 1 1.5 fingerwidths (mild) PT-OP-K Range of Motion Start: 11/18/22 08:13 Freq: Status: Active Protocol: Document 01/05/23 13:21 LRN (Rec: 01/05/23 18:25 LRN [id number]) Lumbar Spine Range of Motion Lumbar Spine Active Degrees Testing Position Standing Flexion 110 Extension 15 Rotation Left 40 Rotation Right 35 Lateral Flexion Left 10 Lateral Flexion Right 5 Comments Trunk AROM: Flexion is 110 deg?s with 65 deg?s hip flexion, Trunk extension is 15 deg?s with 36 deg?s hip extension. Trunk SB L causes L QL pain Hip Goniometric Range of Motion Hip Right Passive Testing Position Supine Extension 5 Internal Rotation 30 External Rotation 65 Left Passive Testing Position Supine Extension 5 Internal Rotation 25 External Rotation 65 PT-OP-M Strength Start: 11/18/22 08:13 Freq: Status: Active Protocol: Document 01/05/23 13:21 LRN (Rec: 01/05/23 18:25 LRN [id number]) Trunk Strength Trunk Manual Muscle Testing Core Stabilization Loss of core stability in sidelie. Hip Strength Hip Manual Muscle Testing Right Flexion (L2) 3 Fair Left Extension (S1) 3 Fair External Rotation 3 Fair PT-OP-Q Treatments Start: 11/18/22 08:13 Freq: Status: Active Protocol: Document 04/13/23 13:02 LRN (Rec: 04/13/23 13:52 LRN [id number]) Therapeutic Exercises Supine Exercises Hip Flexor stretch Supine Exercise Name Hip flexor stretch (leg off edge of table) Side right Reps/Minutes 2' Comments DC'd since there was not a position that eliminated back pain w/stretch Lateral Hip stretch Supine Exercise Name Lateral Hip stretch Side bilateral Reps/Minutes 3' Happy Baby Pose Supine Exercise Name Happy Baby pose. Reps/Minutes 1' Piriformis stretch Supine Exercise Name Piriformis stretch (knee to chest & single knee to opp shldr) Side left Reps/Minutes 3' Comments Cued to hold L for stretch and 2x Sitting Exercises SL hip AD stretch Sitting Exercise Name Leg on plinth, hip AD stretch Side bilateral Reps/Minutes 4' Comments No sign stretch noted Standing Exercises Hip Flexor stretch Standing Exercise Name Hip Flexor stretch: Runner stretch position and w/knee on stool. Side bilateral Reps/Minutes 60 SH x 2 Comments L leg cued to keep from externally rotating. Self-Care/Home Management Treatment Education Patient Education Home Exercise Program Other Education Discussed at length position in car for support to LB and full support of the back when driving. Described different mediums to help obtain proper sitting posture (back support and sitting on wedge). Activities Self-Care/Home Management Activities Issued & reviewed HEP: -Child's Pose -Standing hip flexor stretch, -Hip IR (verbal I/S to focus on L side) with Piriformis ( knee to opp shdr) and Lateral hip stretch PT-OP-T Assessment and Plan Start: 11/18/22 08:13 Freq: Status: Active Protocol: Document 04/13/23 13:02 LRN (Rec: 04/13/23 13:52 LRN [id number]) Physical Therapy Assessment Goals Four Impairment Pain with intercourse. Short Term Goal (STG) Pt educated in PF stretching techiques (ex, ?wand). 03/19/23: Pt issued wand for self stretching w/instructions given. 03/24/23: Reviewed PF stretching technique with pt. Not able to demonstrate due to pt on period. 04/03/23: Reviewed Happy Baby Pose and hip AD stretch. Pt did not feel it was necessary to review PF stretching with wand. STG Duration 3 wks-04/03/23 (04/03/23: MET GOAL) Safety Equipment Testing Specialist Goal (LTG) Eliminate pain with intercourse. 03/03/23: Sometimes painful; pain with intercourse when constipated. 04/03/23: Pain with intercourse only if having constipation and back pain. 04/13/23: Painful intercourse if having constipation or LBP . LTG Duration 10 wks-05/15/23 (04/13/23: MET GOAL to pt's satisfaction) Three Impairment Constipation Short Term Goal (STG) Pt educated in constipation care and coordination of breathing for BM's, transfers, vigorous activity (exercise) and light activities (walking, ADLs). 03/03/23: Pt educated in constipation care, transfer, and ADL light activities. 03/24/23: Discussed use of ex to improve blood flow to help to decrease PF pain and improve bowel function. STG Duration 3 wks-04/03/23 (03/24/23: MET GOAL) Alf Goal (LTG) Decrease constipation with BM 1 every other day or daily. 03/12/23: BM daily for past week. 03/24/23: BM's daily. LTG Duration 10 wks-05/15/23 (03/24/23: MET GOAL) Two Impairment Urinary Leakage daily Impairment Leakage: few drops to wetting of underwear. Leakage with vigorous activity (ex) or light activity ( walking, light housework). Leakage with change in positions (sit to stand) Leakage with strong urge. Short Term Goal (STG) Pt educated in Urinary Delay technique with pt able to make to bathroom with a strong urge. 02/13/23: Educated pt in Urinary Delay technique w/HO issued. 03/19/23: Pt reporting no urinary leakage with a strong urge. STG Duration 2 wks-03/27/23 (03/19/23: MET GOAL) Alf Goal (LTG) Improve PF strength with resolution of Urinary leakage. 03/24/23: Leakage only with coughing or sneezing, but feels it is getting better and not leaking as much when it happens. 04/03/23: Leakage with coughing fit or if not tightening before coughing. 04/13/23: Leakage only with cough with LBPor Constipation. LTG Duration 10 wks-05/15/23 (04/13/23: MET GOAL) One Impairment Pt lacks appropriate self care HEP. Short Term Goal (STG) Education in vulvar/genital care. 03/03/23: Pt educated in vular/genital care. STG Duration 5 wks-02/06/23 (03/03/23: MET GOAL) Safety Equipment Testing Specialist Goal (LTG) Pt will be independent with a self care HEP of PF/core strengthening (rot R>L, & R SB ). LE strengthening (hip left ER, marco AB/AD, ankle IV), DR ( trunk rot -ROM/strength) and hip ROM (ext/rot). 03/12/22: HEP: Hip AD stretch (V-sit, standing, 1 leg on plinth, FROG stretch; SKTC stretch, & Kegel/Bridge). 03/24/23: HEP: Happy Baby Pose, hip stretches: SKTC, FROG stretch, hip AD stretch 1 ) SL on plinth in sitting, 2) SL on chair in standing, 3)V- sit. 04/13/23: HEP: -Child's Pose , -Standing hip flexor stretch , -Hip IR (verbal I/S to focus on L side) with Piriformis ( knee to opp shdr) and Lateral hip stretch. LTG Duration 10 wks-05/15/23 (04/13/23: MET GOAL) Assessment Summary Assessment Pt rehab for mixed urinary incontinence, initially bothered by stress urinary incontinence ~1-2x/day and pain with intercourse and urinary leakage with strong cough or after repetitive coughing. She now reports urinary leakage and pelvic pain with intercourse only when having trouble with constipation or with LBP. The pt has done well with physical therapy. She feels ready to manage her condition on her own and is ready to be discharged to her independent self care HEP. Physical Therapy Plan Discharge Physical Therapy Discharge Reasons Goals Met Discharge Comments Pt requests discharge to independent self care HEP. If the pt has further LBP problems she will seek referral for LB physical therapy. Thank you for your referral.
== END 2023-04-15 10:39 | disposition home or self-care (01) ==
LOC: PHYS 13:00
PROVIDERS: Family Provider Family Medicine; PCP Family Medicine; Referring Provider Family Medicine; Visit Provider Family Medicine
DX: R32 Unspecified urinary incontinence (principal); N39.46 Mixed incontinence; M40.57 Lordosis, unspecified, lumbosacral region; R10.2 Pelvic and perineal pain
CPT/HCPCS: 97110; 97140; 97162; 97535